=== PATIENT | male | born 1950 | race Caucasian/White ===

== ENCOUNTER → 2017-01-13 | Outpatient (CLI) | payer MEDICARE, OTHER | LOC: MW.CHFP 08:00 | PROVIDERS: ATTEND Student in an Organized Health Care Education/Training Program | DX: Z51.81 Encounter for therapeutic drug level monitoring (principal); Z79.01 Long term (current) use of anticoagulants; I48.91 Unspecified atrial fibrillation; I82.91 Chronic embolism and thrombosis of unspecified vein | CPT/HCPCS: 85610; 99211 ==

== ENCOUNTER → 2017-01-21 | Outpatient (CLI) | payer MEDICARE, OTHER ==
--- NOTE | 2017-01-21 16:17 | CR ---
EXAMINATION: Right knee HISTORY: Pain COMPARISON: 05/16/2015 TECHNIQUE: 4 views FINDINGS/IMPRESSION: There is mild joint space narrowing within the medial compartment. No fracture or acute osseous abnormality is noted. No joint effusion or soft tissue swelling.
== END ==
LOC: MW.CHORTHO 07:58
PROVIDERS: ATTEND Orthopaedic Surgery
DX: M25.561 Pain in right knee (principal); M25.861 Other specified joint disorders, right knee; M17.11 Unilateral primary osteoarthritis, right knee
CPT/HCPCS: 20610; 73564-26-RT; 73564-RT; 99214; J1040; J7326

== ENCOUNTER 2019-03-16 16:55 | Emergency (ER) | payer MEDICARE, OTHER ==
--- NOTE | 2019-03-16 17:26 | EDM.PDOC ---
ED HPI GENERAL MEDICAL PROBLEM - General Chief Complaint: Skin Complaint Stated Complaint: RIGHT LEG SORE Time Seen by Provider: 03/16/19 17:05 - History of Present Illness INITIAL COMMENTS - FREE TEXT/NARRATIVE: HISTORY AND PHYSICAL: History of present illness: The patient is a 68-year-old male with a history of A. fib chronic Coumadin use hypertension and hypercholesterolemia who follows with Dr. Hartman at [facility] and presents with complaints of swelling and redness to his left anterior lower leg that started after he cut it with a piece of metal about one week ago. Initially the patient injured it and had bleeding but it was not significantly bleeding and he kept the area clean and dry and they noticed significant swelling to the area. The swelling has improved and has become more hardened but the area of redness in the surrounding tissue as well as with dependent ecchymosis has been persistent. He has some discomfort and pain but he has no posterior calf pain and the pain is localized to the injury. He is able to use the leg as well as move the foot and there is no neurosensory changes in the distal foot. He has no bony pain and has no systemic complaints of fever chills nausea vomiting chest pain or shortness of breath. Patient's tetanus is up-to-date and he has a history of bilateral knee replacements. was concerned that there might be possible in this raised area even though the swelling has significantly improved. She is also worried about infection. The patient specifically denies any posterior calf pain or pain to the posterior knee and has no streaking of redness up his leg. He has no knee pain or swelling and no proximal thigh pain or swelling or swollen glands in his groin. Says his last INR was 2.8 and that was done about 3 weeks ago Review of systems: As per history of present illness and below otherwise all systems reviewed and negative. Past medical history: As per history of present illness and as reviewed below otherwise noncontributory. Surgical history: As per history of present illness and as reviewed below otherwise noncontributory. Social history: No reported history of drug or alcohol abuse. Family history: As per history of present illness and as reviewed below otherwise noncontributory. Physical exam: General: Well-developed well-nourished mildly overweight man who is nontoxic and vital signs are noted by me HEENT: Atraumatic, normocephalic, negative for conjunctival pallor or scleral icterus, mucous membranes moist, throat clear, neck supple, nontender, trachea midline. Lungs: Clear to auscultation, breath sounds equal bilaterally, chest nontender. Heart: S1S2, regular rate and rhythm no overt murmurs Abdomen: Soft, nondistended, nontender. Negative for masses or hepatosplenomegaly. NABS Pelvis: Stable nontender. Genitourinary: Deferred. Rectal: Deferred. Extremities: Atraumatic and full range of motion of all extremities with the exception of the anterior left tib-fib area, negative for cords or calf pain. At the left anterior tib-fib distally there is a scab-like area several centimeters in length without any weeping or oozing and there is a surrounding oval area of hardened induration with ill-defined erythema extending outwardly from that which is not circumferential. There is no streaking up the leg and the area is not particularly warm. There is some mild tenderness with palpation of the region but no bony tenderness. There is dependent ecchymosis seen along the sole of the foot but there is no foot tenderness or soft tissue swelling. The oval area of hardened induration is tender in this area but is very localized and well circumscribed. There is no inguinal adenopathy no warmth tenderness or swelling to the knee and the compartments are all soft. Neurovascular unremarkable. Neuro: Awake, alert, oriented. Cranial nerves II through XII unremarkable. Cerebellum unremarkable. Motor and sensory unremarkable throughout. Exam nonfocal. The patient can dorsi and plantar flex the left foot without inhibition. Diagnostics: CBC INR tib-fib x-ray Therapeutics: none I discussed with the patient and that the fact that the swelling is improving is a good sign and that what I am seeing likely is a retained hematoma that has had some mild infection but is improving and is now exhibiting more hardening and induration. This likely occurred due to his Coumadin usage and will proceed to do the above diagnostics. I will advise them on how to facilitate breakdown of the hematoma and the absorption of blood with gentle massage and I will cover him with antibiotics as this hematoma and area is showing signs of some early cellulitis Patient and at bedside are aware of the INR 1.8 as well as a platelet count of 76. He says that his platelets always run in the low range and that is not new to him. He tells me that he takes Coumadin 5 mg daily but on Friday and Friday it is increased to 7.5 once a day. I've advised him to take the 7.5 mg tonight as well as 7.5 mg tomorrow and and then get a repeat INR at [facility] on Friday. He is aware that the antibiotics may cause the INR to also be driven down and this needs to be reevaluated. He states understanding. Impression: Retained hematoma and early cellulitis of left lower extremity status post injury, chronic anticoagulation secondary to A. fib and subtherapeutic INR Definitive disposition and diagnosis as appropriate pending reevaluation and review of above. left lower leg Pain Score (Numeric/FACES): 5 - Related Data Allergies Allergy/AdvReac Type Severity Reaction Status Date / Time No Known Allergies Allergy Verified 03/16/19 17:06 Home Meds: Home Meds Warfarin [Coumadin] 5 mg PO SUMOWETHFR 12/19/15 [History] atorvaSTATin [Lipitor] 40 mg PO DAILY 12/19/15 [History] Diltiazem [Cardizem CD] 180 mg PO DAILY #14 cap.cd 12/21/15 [Rx] Lisinopril 40 mg PO DAILY #14 tablet 12/21/15 [Rx] Prochlorperazine Maleate [Compazine] 10 mg PO QID #20 tablet 12/21/15 [Rx] Warfarin [Coumadin] 7.5 mg PO TUSA 12/21/15 [History] cloNIDine HCl [Catapres] 0.1 mg PO Q8HR #42 tab 12/21/15 [Rx] Past Medical History HEENT History: Reports: Cataract, Impaired Vision Cardiovascular History: Reports: Arrhythmia, High Cholesterol, Hypertension, Pacemaker Respiratory History: Reports: None Gastrointestinal History: Reports: Diverticulosis, GERD Genitourinary History: Reports: None Musculoskeletal History: Reports: None Neurological History: Reports: None Psychiatric History: Reports: None Endocrine/Metabolic History: Reports: None Hematologic History: Reports: None Immunologic History: Reports: None Oncologic (Cancer) History: Reports: None Dermatologic History: Reports: None - Infectious Disease History Infectious Disease History: Reports: None - Past Surgical History Head Surgeries/Procedures: Reports: None HEENT Surgical History: Reports: None Cardiovascular Surgical History: Reports: Other (See Below) Respiratory Surgical History: Reports: None GI Surgical History: Reports: None Male Surgical History: Reports: None Endocrine Surgical History: Reports: None Neurological Surgical History: Reports: None Musculoskeletal Surgical History: Reports: Knee Replacement Oncologic Surgical History: Reports: None Dermatological Surgical History: Reports: None Social & Family History - Family History Family Medical History: Noncontributory - Tobacco Use Smoking Status *Q: Never Smoker - Caffeine Use Caffeine Use: Reports: None - Recreational Drug Use Recreational Drug Use: No ED ROS GENERAL - Review of Systems Review Of Systems: ROS reveals no pertinent complaints other than HPI. ED EXAM, SKIN/RASH Exam: See Below (See dictation) Course - Vital Signs Last Recorded V/S: Last Vital Signs Temp 35.9 C 03/16/19 17:08 Pulse 84 03/16/19 17:08 Resp 16 03/16/19 17:08 BP 144/97 H 03/16/19 17:08 Pulse Ox 97 03/16/19 17:08 - Orders/Labs/Meds Orders: Active Orders 24 hr Category Date Time Status Tibia Fibula Lt [CR] Stat Exams 03/16/19 17:19 Taken Labs: Laboratory Tests 03/16/19 03/16/19 Range/Units 17:32 17:32 WBC 8.24 (4.0-11.0) K/uL RBC 4.09 L (4.50-5.90) M/uL Hgb 12.4 L (13.0-17.0) g/dL Hct 37.9 L (38.0-50.0) % MCV 92.7 (80.0-98.0) fL MCH 30.3 (27.0-32.0) pg MCHC 32.7 (31.0-37.0) g/dL RDW Std Deviation 51.7 (28.0-62.0) fl RDW Coeff of Queenie 15 (11.0-15.0) % Plt Count 76 L (150-400) K/uL MPV 12.70 H (7.40-12.00) fL Add Manual Diff YES Neutrophils % (Manual) 48 (48.0-80.0) % Band Neutrophils % 1 % Lymphocytes % (Manual) 40 (16.0-40.0) % Monocytes % (Manual) 10 (0.0-15.0) % Eosinophils % (Manual) 1 (0.0-7.0) % Nucleated RBC % 0.0 /100WBC Absolute Seg Neuts 4.0 (1.4-5.7) Band Neutrophils # 0.1 Lymphocytes # (Manual) 3.3 H (0.6-2.4) Monocytes # (Manual) 0.8 (0.0-0.8) Eosinophils # (Manual) 0.1 (0.0-0.7) Nucleated RBCs # 0 K/uL INR 1.80 Departure - Departure Time of Disposition: 18:16 Disposition: Home, Self-Care 01 Condition: Good Clinical Impression: Left leg cellulitis, Chronic anticoagulation, Subtherapeutic international normalized ratio (INR) Hematoma of left lower extremity Qualifiers: Encounter type: initial encounter Qualified Code(s): S80.12XA - Contusion of left lower leg, initial encounter - Discharge Information Referrals: Newton Hartman MD [Primary Care Provider] - Forms: ED Department Discharge Additional Instructions: The following information is given to patients seen in the emergency department who are being discharged to home. This information is to outline your options for follow-up care. We provide all patients seen in our emergency department with a follow-up referral. The need for follow-up, as well as the timing and circumstances, are variable depending upon the specifics of your emergency department visit. If you don't have a primary care physician on staff, we will provide you with a referral. We always advise you to contact your personal physician following an emergency department visit to inform them of the circumstance of the visit and for follow-up with them and/or the need for any referrals to a consulting specialist. The emergency department will also refer you to a specialist when appropriate. This referral assures that you have the opportunity for followup care with a specialist. All of these measure are taken in an effort to provide you with optimal care, which includes your followup. Under all circumstances we always encourage you to contact your private physician who remains a resource for coordinating your care. When calling for followup care, please make the office aware that this follow-up is from your recent emergency room visit. If for any reason you are refused follow-up, please contact the [facility] emergency department at and ask to speak to the emergency department charge nurse. [facility] [address] [place] [address] Try to avoid any trauma to the leg that may reinjure it. Ice and elevate the area after prolonged standing activities. Please take your regular Coumadin dose tonight but increase your dose on Friday to 7.5 mg and take your regular dose on . Please call [facility] and have a repeat INR performed on Friday as we discussed. Please take antibiotics as prescribed for the early infection. Take [id number] medications for pain management and return to ER as needed and as discussed - My Orders Last 24 Hours: My Active Orders 03/16/19 17:19 Tibia Fibula Lt [CR] Stat - Assessment/Plan Last 24 Hours: My Active Orders 03/16/19 17:19 Tibia Fibula Lt [CR] Stat
[2019-03-16 18:34] VITALS: BP 136/91
--- NOTE | 2019-03-16 19:24 | CR ---
INDICATION: Anterior soft tissues sores. Rule out osteomyelitis. TECHNIQUE: 2-view left tibia and fibula. COMPARISON: none FINDINGS: The left knee arthroplasty and ankle are anatomically aligned. There is no evidence of a fracture or intrinsic bone lesion within the tibia and fibula. There is no evidence of gas or foreign body within the soft tissues. IMPRESSION: No evidence of osteomyelitis. Dictated by Geoffrey Camacho MD @ Mar 16 2019 6:57PM Signed by Dr. Geoffrey Camacho @ Mar 16 2019 7:22PM
== END 2019-03-16 18:32 | disposition home or self-care (01) ==
LOC: MW.ED 16:55
DX: S80.12XA Contusion of left lower leg, initial encounter (principal); L03.116 Cellulitis of left lower limb; R79.1 Abnormal coagulation profile; I10 Essential (primary) hypertension; I48.91 Unspecified atrial fibrillation; Z79.01 Long term (current) use of anticoagulants; Z95.0 Presence of cardiac pacemaker; Z79.899 Other long term (current) drug therapy; W26.8XXA Contact with other sharp object(s), not elsewhere classified, initial encounter
CPT/HCPCS: 36415; 73590-26-LT; 73590-LT; 85025; 85610; 99283-25

== ENCOUNTER 2019-06-07 10:58 | Observation (INO) | payer MEDICARE, OTHER ==
[2019-06-07] MEDS ORDERED: Diltiazem 25 MG/5 ML SDV IVPUSH ONE (11:04)
[2019-06-07] MEDS ORDERED: Sodium Chloride 0.9% 10 ML Syringe FLUSH PRN (11:05)
[2019-06-07] MEDS ORDERED: Sodium Chloride 0.9% 2.5 ML Syringe FLUSH PRN (11:05)
[2019-06-07] MEDS ORDERED: Diltiazem 25 MG/5 ML SDV ONE (11:05)
--- NOTE | 2019-06-07 11:05 | EDM.PDOC ---
ED HPI GENERAL MEDICAL PROBLEM - General Chief Complaint: Cardiovascular Problem Stated Complaint: AMB Time Seen by Provider: 06/07/19 11:04 Source of Information: Reports: Patient History Limitations: Reports: No Limitations - History of Present Illness INITIAL COMMENTS - FREE TEXT/NARRATIVE: HISTORY AND PHYSICAL: History of present illness: Patient is a 68-year-old male presents to the ED via EMS with complaint of dizziness and shortness of breath. Patient has history of chronic atrial fibrillation with pacemaker on warfarin, dyslipidemia. Patient states this morning he was at the [employer] playing pickle ball when he suddenly started feeling dizzy, lightheaded, short of breath and vomited. He states he has had this in the past and it resolves with rest. He states he is feeling much better now, denies any of the above symptoms, chest pain, abdominal pain, nausea, headache, palpitations. He states he has not take his diltiazem this morning. EKG shows atrial flutter with rate of 79, BP 133/75. Review of systems: As per history of present illness and below otherwise all systems reviewed and negative. Past medical history: As per history of present illness and as reviewed below otherwise noncontributory. Surgical history: As per history of present illness and as reviewed below otherwise noncontributory. Social history: No reported history of drug or alcohol abuse. Family history: As per history of present illness and as reviewed below otherwise noncontributory. Physical exam: General: Patient sitting comfortably in no acute distress and nontoxic appearing HEENT: Atraumatic, normocephalic, pupils reactive, negative for conjunctival pallor or scleral icterus, mucous membranes moist, throat clear, neck supple, nontender, trachea midline. No meningeal signs. Lungs: Clear to auscultation, breath sounds equal bilaterally, chest nontender. Heart: S1S2, regular, negative for clicks, rubs, or overt murmur. Abdomen: Soft, nondistended, nontender. Negative for masses or hepatosplenomegaly. Negative for costovertebral tenderness. No rigidity, rebound , guarding. Pelvis: Stable nontender. Genitourinary: Deferred. Rectal: Deferred. Extremities: Atraumatic, negative for cords or calf pain. Neurovascular unremarkable. Neuro: Awake, alert, oriented. Cranial nerves II through XII unremarkable. Cerebellum unremarkable. Motor and sensory unremarkable throughout. Exam nonfocal. Notes: Diagnostics: CBC, CMP, PT/INR, troponin, EKG, CXR Therapeutics: 1L NS IV Prescriptions: Impression: Atrial flutter Plan: Discussed with Dr. Zelaya, patient will be admitted to observation Definitive disposition and diagnosis as appropriate pending reevaluation and review of above. - Related Data Allergies Allergy/AdvReac Type Severity Reaction Status Date / Time No Known Allergies Allergy Verified 06/07/19 11:05 Home Meds: Home Meds Warfarin [Coumadin] 5 mg PO SUMOWETHFR 12/19/15 [History] atorvaSTATin [Lipitor] 40 mg PO DAILY 12/19/15 [History] Diltiazem [Cardizem CD] 180 mg PO DAILY #14 cap.cd 12/21/15 [Rx] Lisinopril 40 mg PO DAILY #14 tablet 12/21/15 [Rx] Prochlorperazine Maleate [Compazine] 10 mg PO QID #20 tablet 12/21/15 [Rx] Warfarin [Coumadin] 7.5 mg PO TUSA 12/21/15 [History] cloNIDine HCl [Catapres] 0.1 mg PO Q8HR #42 tab 12/21/15 [Rx] Amoxicillin/Clavulanate K [Augmentin 875-125 MG] 1 tab PO BID #20 tablet [Rx] Past Medical History HEENT History: Reports: Cataract, Impaired Vision Cardiovascular History: Reports: Arrhythmia, High Cholesterol, Hypertension, Pacemaker Respiratory History: Reports: None Gastrointestinal History: Reports: Diverticulosis, GERD Genitourinary History: Reports: None Musculoskeletal History: Reports: None Neurological History: Reports: None Psychiatric History: Reports: None Endocrine/Metabolic History: Reports: None Hematologic History: Reports: None Immunologic History: Reports: None Oncologic (Cancer) History: Reports: None Dermatologic History: Reports: None - Infectious Disease History Infectious Disease History: Reports: None - Past Surgical History Head Surgeries/Procedures: Reports: None HEENT Surgical History: Reports: None Cardiovascular Surgical History: Reports: Other (See Below) Respiratory Surgical History: Reports: None GI Surgical History: Reports: None Male Surgical History: Reports: None Endocrine Surgical History: Reports: None Neurological Surgical History: Reports: None Musculoskeletal Surgical History: Reports: Knee Replacement Oncologic Surgical History: Reports: None Dermatological Surgical History: Reports: None Social & Family History - Family History Family Medical History: Noncontributory - Caffeine Use Caffeine Use: Reports: None ED ROS GENERAL - Review of Systems Review Of Systems: ROS reveals no pertinent complaints other than HPI. ED EXAM, GENERAL - Physical Exam Exam: See Below (see dictation) Course - Vital Signs Last Recorded V/S: Last Vital Signs Temp 96.5 F 06/07/19 11:02 Pulse 82 06/07/19 11:54 Resp 20 06/07/19 11:54 BP 129/82 06/07/19 11:54 Pulse Ox 97 06/07/19 11:54 - Orders/Labs/Meds Orders: Active Orders 24 hr Category Date Time Status Admission Status [Patient Status] [ADT] Stat ADT 06/07/19 12:24 Ordered Cardiac Monitoring [RC] . DIRECTED Care 06/07/19 11:05 Active Cardiac Monitoring [RC] . DIRECTED Care 06/07/19 12:24 Ordered EKG Documentation Completion [RC] STAT Care 06/07/19 11:05 Active Sodium Chloride 0.9% [Saline Flush] Med 06/07/19 11:05 Active 10 ml FLUSH ASDIRECTED PRN Sodium Chloride 0.9% [Saline Flush] Med 06/07/19 11:05 Active 2.5 ml FLUSH ASDIRECTED PRN Saline Lock Insert [OM.PC] Stat Oth 06/07/19 11:05 Ordered Medication Orders Sodium Chloride (Saline Flush) 10 ml FLUSH ASDIRECTED PRN PRN Reason: Keep Vein Open Last Admin: 06/07/19 11:13 Dose: 10 ml Sodium Chloride (Saline Flush) 2.5 ml FLUSH ASDIRECTED PRN PRN Reason: Keep Vein Open Last Admin: 06/07/19 11:13 Dose: 2.5 ml Labs: Laboratory Tests 06/07/19 06/07/19 06/07/19 Range/Units 11:05 11:05 11:05 WBC 12.37 H (4.0-11.0) K/uL RBC 4.27 L (4.50-5.90) M/uL Hgb 13.3 (13.0-17.0) g/dL Hct 41.5 (38.0-50.0) % MCV 97.2 (80.0-98.0) fL MCH 31.1 (27.0-32.0) pg MCHC 32.0 (31.0-37.0) g/dL RDW Std Deviation 58.6 (28.0-62.0) fl RDW Coeff of Queenie 17 H (11.0-15.0) % Plt Count 71 L (150-400) K/uL MPV (7.40-12.00) fL Add Manual Diff YES Neutrophils % (Manual) 62 (48.0-80.0) % Band Neutrophils % 5 % Lymphocytes % (Manual) 9 L (16.0-40.0) % Monocytes % (Manual) 20 H (0.0-15.0) % Metamyelocytes % 1 % Myelocytes % 3 % Nucleated RBC % 0.0 /100WBC Absolute Seg Neuts 7.7 H (1.4-5.7) Band Neutrophils # 0.6 Lymphocytes # (Manual) 1.1 (0.6-2.4) Monocytes # (Manual) 2.5 H (0.0-0.8) Absolute Metamyelocyte 0.1 Absolute Myelocytes 0.4 Nucleated RBCs # 0 K/uL INR 2.37 Sodium 141 (136-148) mmol/L Potassium 3.8 (3.5-5.1) mmol/L Chloride 105 (98-107) mmol/L Carbon Dioxide 24.6 (21.0-32.0) mmol/L BUN 13 (7.0-18.0) mg/dL Creatinine 1.8 H (0.8-1.3) mg/dL Est Cr Clr Drug Dosing 35.70 mL/min Estimated GFR (MDRD) 37.5 ml/min Glucose 156 H (74-106) mg/dL Calcium 9.2 (8.5-10.1) mg/dL Total Bilirubin 1.4 H (0.2-1.0) mg/dL AST 36 (15-37) IU/L ALT 21 (14-63) IU/L Alkaline Phosphatase 65 (46-116) U/L Troponin I < 0.050 (0.000-0.056) ng/mL Total Protein 7.7 (6.4-8.2) g/dL Albumin 4.3 (3.4-5.0) g/dL Globulin 3.4 (2.6-4.0) g/dL Albumin/Globulin Ratio 1.3 (0.9-1.6) Meds: Medications Generic Name Dose Route Start Last Admin Trade Name Freq PRN Reason Stop Dose Admin Sodium Chloride 10 ml 06/07/19 11:05 06/07/19 11:13 Saline Flush FLUSH 10 ml ASDIRECTED PRN Administration Keep Vein Open Sodium Chloride 2.5 ml 06/07/19 11:05 06/07/19 11:13 Saline Flush FLUSH 2.5 ml ASDIRECTED PRN Administration Keep Vein Open Discontinued Medications Generic Name Dose Route Start Last Admin Trade Name Freq PRN Reason Stop Dose Admin Diltiazem HCl 25 mg 06/07/19 11:04 Diltiazem IVPUSH 06/07/19 11:05 ONETIME ONE Diltiazem HCl Confirm 06/07/19 11:05 Diltiazem Administered 06/07/19 11:06 Dose 25 mg .ROUTE .STK-MED ONE Sodium Chloride 1,000 mls @ 999 mls/hr 06/07/19 11:06 06/07/19 11:10 Normal Saline IV 06/07/19 12:06 999 mls/hr STAT ONE Administration Departure - Departure Time of Disposition: 12:26 Disposition: Refer to Observation Condition: Good Clinical Impression: Atrial flutter Referrals: PCP,Unknown [Primary Care Provider] - Forms: ED Department Discharge - My Orders Last 24 Hours: My Active Orders 06/07/19 11:05 Cardiac Monitoring [RC] . DIRECTED EKG Documentation Completion [RC] STAT Sodium Chloride 0.9% [Saline Flush] 10 ml FLUSH ASDIRECTED PRN Sodium Chloride 0.9% [Saline Flush] 2.5 ml FLUSH ASDIRECTED PRN Saline Lock Insert [OM.PC] Stat 06/07/19 12:24 Admission Status [Patient Status] [ADT] Stat Cardiac Monitoring [RC] . DIRECTED - Assessment/Plan Last 24 Hours: My Active Orders 06/07/19 11:05 Cardiac Monitoring [RC] . DIRECTED EKG Documentation Completion [RC] STAT Sodium Chloride 0.9% [Saline Flush] 10 ml FLUSH ASDIRECTED PRN Sodium Chloride 0.9% [Saline Flush] 2.5 ml FLUSH ASDIRECTED PRN Saline Lock Insert [OM.PC] Stat 06/07/19 12:24 Admission Status [Patient Status] [ADT] Stat Cardiac Monitoring [RC] . DIRECTED
[2019-06-07] MEDS ORDERED: Sodium Chloride 0.9% 1,000 ML IV ONE (11:06)
[2019-06-07 11:49] LABS: BLOOD UREA NITROGEN,BUN 13 mg/dL (7.0-18.0); CARBON DIOXIDE,CO2 24.6 mmol/L (21.0-32.0); CHLORIDE,CL 105 mmol/L (98-107); GLUCOSE RANDOM 156 mg/dL (74-106); POTASSIUM,K 3.8 mmol/L (3.5-5.1); SODIUM,NA 141 mmol/L (136-148)
--- NOTE | 2019-06-07 11:57 | CR ---
Chest: Portable view of the chest was obtained. Comparison: Prior chest x-ray 12/19/15. Findings: Heart size is slightly prominent but accentuated from portable technique. Tortuous thoracic aorta is seen. Pacemaker is noted. Bony structures are grossly intact. Impression: Nothing acute is seen on portable chest x-ray. Diagnostic code #2 MTDD
--- NOTE | 2019-06-07 14:27 | PCM.HP.2 ---
H&P History of Present Illness - General Date of Service: 06/07/19 Admit Problem/Dx: Admission Diagnosis/Problem Admission Diagnosis/Problem Atrial flutter by electrocardiogram Source of Information: Patient History Limitations: Reports: No Limitations - History of Present Illness Initial Comments - Free Text/Narative: This 68 year old male with pmh of a flutter on chronic anticoagulation, HTN, and recent cataract surgery presented to the ED today with complaint of lightheadedness, diaphoresis and vomiting. He reports he was playing pickle ball at the [employer] and didn't take enough breaks, per his report. He started feeling lightheaded and dizzy, short of breath and vomited. He felt better soon after once he was resting. He reports this has happened in the past and it resolves with rest. His was nearby and saw him during this event. She reports he was rangel in appearance, skin was diaphoretic and cool to the touch. She reports he hasn't been "right" the last day or two. He is alert and oriented , but just isn't himself. He denies fevers, chills, headache or neck pain. No chest pain or palpitations. reports when he was diagnosed with a flutter and pacer was placed, he had chronic fatigue and dizziness, no palpitations or chest pain. He denies dysuria or diarrhea or constipation. No neurologic deficits. He recently had a pacemaker check on April 24, reports everything was good. In the ED mild leukocytosis noted, 12,370, platelets 71, which is near baseline.. CR 1.8, elevated from baseline. Bilirubin 1.4 Troponin negative. EKG revealed aflutter, rates in the 70s. He was given 1 L fluid in the ED. He will be admitted for dizziness, lightheadedness. PCP, Dr Hartman. and Dr Alvarez in [place]. - Related Data Allergies/Adverse Reactions: Allergies Allergy/AdvReac Type Severity Reaction Status Date / Time No Known Allergies Allergy Verified 06/07/19 13:07 Home Medications: Home Meds Warfarin [Coumadin] 5 mg PO SUMOWEFR 12/19/15 [History] atorvaSTATin [Lipitor] 40 mg PO DAILY 12/19/15 [History] Diltiazem [Cardizem CD] 180 mg PO DAILY #14 cap.cd 12/21/15 [Rx] Warfarin [Coumadin] 7.5 mg PO TUTHSA 12/21/15 [History] Celecoxib [CeleBREX] 100 mg PO DAILY 06/07/19 [History] Lisinopril 20 mg PO DAILY 06/07/19 [History] Pantoprazole [ProTONIX] 40 mg PO DAILY 06/07/19 [History] Past Medical History HEENT History: Reports: Cataract, Impaired Vision Cardiovascular History: Reports: Afib, Arrhythmia, High Cholesterol, Hypertension, Pacemaker Respiratory History: Reports: None. Denies: COPD Gastrointestinal History: Reports: Diverticulosis, GERD, Other (See Below) Other Gastrointestinal History: "burned portions in esophagus" Genitourinary History: Reports: None Musculoskeletal History: Reports: None Neurological History: Reports: Other (See Below). Denies: CVA, TIA Other Neuro History: meningitis Psychiatric History: Reports: None Endocrine/Metabolic History: Reports: Obesity/BMI 30+. Denies: Diabetes, Type II Hematologic History: Reports: Idiopathic Thrombocytopenia Immunologic History: Reports: None Oncologic (Cancer) History: Reports: None Dermatologic History: Reports: None - Infectious Disease History Infectious Disease History: Reports: Measles - Past Surgical History Head Surgeries/Procedures: Reports: None HEENT Surgical History: Reports: None, Cataract Surgery Cardiovascular Surgical History: Reports: Pacer Respiratory Surgical History: Reports: None GI Surgical History: Reports: None Male Surgical History: Reports: None Endocrine Surgical History: Reports: None Neurological Surgical History: Reports: None Musculoskeletal Surgical History: Reports: Knee Replacement Oncologic Surgical History: Reports: None Dermatological Surgical History: Reports: None Social & Family History - Family History Family Medical History: Noncontributory - Tobacco Use Smoking Status *Q: Never Smoker - Caffeine Use Caffeine Use: Reports: Soda - Alcohol Use Alcohol Use History: No Alcohol Use Frequency: Socially - Recreational Drug Use Recreational Drug Use: No - Living Situation & Occupation Living situation: Reports: Occupation: Retired H&P Review of Systems - Review of Systems: Review Of Systems: See Below General: Reports: Malaise. Denies: Fever, Chills HEENT: Reports: No Symptoms. Denies: Headaches, Sinus Congestion, Sore Throat Pulmonary: Reports: Shortness of Breath (during event at [employer]). Denies: Wheezing Cardiovascular: Reports: Lightheadedness. Denies: Chest Pain, Palpitations, Edema Gastrointestinal: Reports: Vomiting. Denies: Abdominal Pain, Black Stool, Bloody Stool, Nausea Genitourinary: Reports: No Symptoms. Denies: Dysuria, Frequency, Burning Skin: Reports: No Symptoms Psychiatric: Reports: No Symptoms Neurological: Reports: No Symptoms Hematologic/Lymphatic: Reports: No Symptoms Immunologic: Reports: No Symptoms Exam - Exam Exam: See Below - Vital Signs Vital Signs: Last Vital Signs Temp 97 F 06/07/19 13:24 Pulse 78 06/07/19 13:24 Resp 18 06/07/19 13:24 BP 150/96 H 06/07/19 13:24 Pulse Ox 98 06/07/19 13:54 Weight: 116 kg - Exam General: Alert, Oriented, Cooperative HEENT: Conjunctiva Clear, Mucosa Moist & Wrigley, Posterior Pharynx Clear Neck: Supple, Trachea Midline Lungs: Clear to Auscultation, Normal Respiratory Effort Cardiovascular: Regular Rate, Irregular Rhythm. No: Tachycardia, Systolic Murmur GI/Abdominal Exam: Normal Bowel Sounds, Soft Extremities: Normal Inspection, Normal Range of Motion, Non-Tender, No Pedal Edema Neuro Extensive - Mental Status: Alert, Oriented x3 Neuro Extensive - Motor, Sensory, Reflexes: CN II-XII Intact Psychiatric: Alert, Normal Affect, Normal Mood - Patient Data Lab Results Last 24 hrs: Laboratory Results - last 24 hr 06/07/19 06/07/19 06/07/19 Range/Units 11:05 11:05 11:05 WBC 12.37 H (4.0-11.0) K/uL RBC 4.27 L (4.50-5.90) M/uL Hgb 13.3 (13.0-17.0) g/dL Hct 41.5 (38.0-50.0) % MCV 97.2 (80.0-98.0) fL MCH 31.1 (27.0-32.0) pg MCHC 32.0 (31.0-37.0) g/dL RDW Std Deviation 58.6 (28.0-62.0) fl RDW Coeff of Queenie 17 H (11.0-15.0) % Plt Count 71 L (150-400) K/uL MPV (7.40-12.00) fL Add Manual Diff YES Neutrophils % (Manual) 62 (48.0-80.0) % Band Neutrophils % 5 % Lymphocytes % (Manual) 9 L (16.0-40.0) % Monocytes % (Manual) 20 H (0.0-15.0) % Metamyelocytes % 1 % Myelocytes % 3 % Nucleated RBC % 0.0 /100WBC Absolute Seg Neuts 7.7 H (1.4-5.7) Band Neutrophils # 0.6 Lymphocytes # (Manual) 1.1 (0.6-2.4) Monocytes # (Manual) 2.5 H (0.0-0.8) Absolute Metamyelocyte 0.1 Absolute Myelocytes 0.4 Nucleated RBCs # 0 K/uL INR 2.37 Sodium 141 (136-148) mmol/L Potassium 3.8 (3.5-5.1) mmol/L Chloride 105 (98-107) mmol/L Carbon Dioxide 24.6 (21.0-32.0) mmol/L BUN 13 (7.0-18.0) mg/dL Creatinine 1.8 H (0.8-1.3) mg/dL Est Cr Clr Drug Dosing 35.70 mL/min Estimated GFR (MDRD) 37.5 ml/min Glucose 156 H (74-106) mg/dL Calcium 9.2 (8.5-10.1) mg/dL Magnesium (1.8-2.4) mg/dL Total Bilirubin 1.4 H (0.2-1.0) mg/dL AST 36 (15-37) IU/L ALT 21 (14-63) IU/L Alkaline Phosphatase 65 (46-116) U/L Troponin I < 0.050 (0.000-0.056) ng/mL Total Protein 7.7 (6.4-8.2) g/dL Albumin 4.3 (3.4-5.0) g/dL Globulin 3.4 (2.6-4.0) g/dL Albumin/Globulin Ratio 1.3 (0.9-1.6) 06/07/19 Range/Units 11:05 WBC (4.0-11.0) K/uL RBC (4.50-5.90) M/uL Hgb (13.0-17.0) g/dL Hct (38.0-50.0) % MCV (80.0-98.0) fL MCH (27.0-32.0) pg MCHC (31.0-37.0) g/dL RDW Std Deviation (28.0-62.0) fl RDW Coeff of Queenie (11.0-15.0) % Plt Count (150-400) K/uL MPV (7.40-12.00) fL Add Manual Diff Neutrophils % (Manual) (48.0-80.0) % Band Neutrophils % % Lymphocytes % (Manual) (16.0-40.0) % Monocytes % (Manual) (0.0-15.0) % Metamyelocytes % % Myelocytes % % Nucleated RBC % /100WBC Absolute Seg Neuts (1.4-5.7) Band Neutrophils # Lymphocytes # (Manual) (0.6-2.4) Monocytes # (Manual) (0.0-0.8) Absolute Metamyelocyte Absolute Myelocytes Nucleated RBCs # K/uL INR Sodium (136-148) mmol/L Potassium (3.5-5.1) mmol/L Chloride (98-107) mmol/L Carbon Dioxide (21.0-32.0) mmol/L BUN (7.0-18.0) mg/dL Creatinine (0.8-1.3) mg/dL Est Cr Clr Drug Dosing mL/min Estimated GFR (MDRD) ml/min Glucose (74-106) mg/dL Calcium (8.5-10.1) mg/dL Magnesium 1.9 (1.8-2.4) mg/dL Total Bilirubin (0.2-1.0) mg/dL AST (15-37) IU/L ALT (14-63) IU/L Alkaline Phosphatase (46-116) U/L Troponin I (0.000-0.056) ng/mL Total Protein (6.4-8.2) g/dL Albumin (3.4-5.0) g/dL Globulin (2.6-4.0) g/dL Albumin/Globulin Ratio (0.9-1.6) Result Diagrams: 06/07/19 11:05 06/07/19 11:05 EKG INTERPRETATION EKG Date: 06/07/19 Rhythm: A-Flutter Rate (Beats/Min): 79 QRS: Normal ST-T: Normal QT: Normal - Problem List (1) Lightheadedness SNOMED Code(s): 419723063 ICD Code: R42 - DIZZINESS AND GIDDINESS Status: Acute Current Visit: Yes (2) Atrial flutter SNOMED Code(s): 9911591 ICD Code: I48.92 - UNSPECIFIED ATRIAL FLUTTER Status: Chronic Current Visit: Yes (3) Chronic anticoagulation SNOMED Code(s): 093752545 ICD Code: Z79.01 - SENIOR LIVING (CURRENT) USE OF ANTICOAGULANTS Status: Chronic Current Visit: No (4) Dyslipidemia SNOMED Code(s): 385063590 ICD Code: E78.5 - HYPERLIPIDEMIA, UNSPECIFIED Status: Chronic Priority: Medium Current Visit: No (5) Pacemaker SNOMED Code(s): 695887967 ICD Code: Z95.0 - PRESENCE OF CARDIAC PACEMAKER Status: Chronic Current Visit: No Problem List Initiated/Reviewed/Updated: Yes Orders Last 24hrs: Active Orders 24 hr Category Date Time Status Admission Status [Patient Status] [ADT] Stat ADT 06/07/19 12:24 Active Cardiac Monitoring [RC] . DIRECTED Care 06/07/19 11:05 Active Cardiac Monitoring [RC] . DIRECTED Care 06/07/19 12:24 Active Communication Order [RC] ROUTINE Care 06/07/19 13:58 Active EKG Documentation Completion [RC] STAT Care 06/07/19 11:05 Active Intake and Output [RC] Q12H Care 06/07/19 13:55 Active Oxygen Therapy [RC] PRN Care 06/07/19 13:54 Active Telemetry Monitoring [Cardiac Monitoring] [RC] . Care 06/07/19 12:52 Active DIRECTED Up to Chair [RC] ASDIRECTED Care 06/07/19 13:54 Active VTE/DVT Education [RC] PER UNIT ROUTINE Care 06/07/19 13:54 Active Vital Signs [RC] Q4H Care 06/07/19 13:54 Active Heart Healthy Diet [DIET] Diet 06/07/19 Lunch Active Echo Comp wo Cont [US] Routine Exams 06/07/19 13:56 Ordered BASIC METABOLIC PANEL,BMP [CHEM] AM Lab 06/08/19 05:11 Ordered CBC WITH AUTO DIFF [HEME] AM Lab 06/08/19 05:11 Ordered TROPONIN I [CHEM] Q6H Lab 06/07/19 17:00 Ordered TROPONIN I [CHEM] Q6H Lab 06/07/19 23:00 Ordered Sodium Chloride 0.9% [Normal Saline] 1,000 ml Med 06/07/19 14:00 Active IV ASDIRECTED Sodium Chloride 0.9% [Saline Flush] Med 06/07/19 11:05 Active 10 ml FLUSH ASDIRECTED PRN Sodium Chloride 0.9% [Saline Flush] Med 06/07/19 11:05 Active 2.5 ml FLUSH ASDIRECTED PRN Saline Lock Insert [OM.PC] Stat Oth 06/07/19 11:05 Ordered Resuscitation Status Routine Resus Stat 06/07/19 13:54 Ordered Medication Orders Sodium Chloride (Normal Saline) 1,000 mls @ 100 mls/hr IV ASDIRECTED OPAL Sodium Chloride (Saline Flush) 10 ml FLUSH ASDIRECTED PRN PRN Reason: Keep Vein Open Last Admin: 06/07/19 11:13 Dose: 10 ml Sodium Chloride (Saline Flush) 2.5 ml FLUSH ASDIRECTED PRN PRN Reason: Keep Vein Open Last Admin: 06/07/19 11:13 Dose: 2.5 ml Assessment/Plan Comment:: This 68 year old male admitted with dizziness, lightheadedness 1. Dizziness/lightheadedness: During exercise this morning. Dr Bonner to interrogate pacemaker, this revealed afib with RVR yesterday, nothing today. He had not taken his Diltiazem for the morning. Dr Bonner recommended ECHO, monitor troponins, and carotid doppler. Monitor on telemetry. Check orthostatic VS. 2. JACEK: Slight dehydration suspected. Will give gentle IVF overnight NS 100 ml, recheck BMP in am. Obtain records of last labwork in [place]. 3. Aflutter: Continue Diltiazem. Continue Coumadin. 4. HTN: Continue Home medications. VTE prophylaxis: Continue Coumadin Dispo: 1 day - Mortality Measure Prognosis:: Good
[2019-06-07] MEDS: Sodium Chloride 0.9% 1,000 ML IV SCH (16:25)
--- NOTE | 2019-06-07 17:02 | US ---
Carotid ultrasound: Duplex and color Doppler evaluation was obtained of the carotid arteries. Mild amount of plaque noted within the right carotid bulb. Right side: Peak systolic velocity measurement within the common carotid artery is 0.90 m/s. Peak systolic velocity within the internal carotid artery is 0.96 m/s with peak end-diastolic velocity of 0.39 m/s. ECA has a peak systolic velocity of 1.11 m/s. Vertebral artery has a peak systolic velocity of 0.14 m/s. ICA/CCA ratio is 1.39. Left side: CCA has a peak systolic velocity of 1.04 m/s. ICA has a peak systolic velocity of 0.71 m/s and peak end-diastolic velocity of 0.28 m/s. ECA has a peak systolic velocity of 0.66 m/s. Vertebral artery has a peak systolic velocity of 0.78 m/s. ICA/CCA ratio is 1.06. Impression: 1. Mild amount of plaque. 2. Velocity measurements are within normal limits. Diagnostic code #2 MTDD
[2019-06-07] MEDS ORDERED: Warfarin 5 MG Tab PO SCH (20:00)
[2019-06-07] MEDS: Diltiazem 180 MG Cap.CD PO SCH (21:21)
[2019-06-08] MEDS: Sodium Chloride 0.9% 1,000 ML IV SCH (02:12)
[2019-06-08 04:24] VITALS: PULSE 74
[2019-06-08 07:08] LABS: CARBON DIOXIDE,CO2 24.9 mmol/L (21.0-32.0); POTASSIUM,K 3.7 mmol/L (3.5-5.1)
[2019-06-08 08:05] VITALS: BP 164/93
[2019-06-08] MEDS: Diltiazem 180 MG Cap.CD PO SCH (08:20)
[2019-06-08] MEDS ORDERED: Pantoprazole 40 MG Tab.CR PO SCH (09:00)
[2019-06-08] MEDS ORDERED: Lisinopril 10 MG Tab PO SCH (09:00)
[2019-06-08] MEDS ORDERED: atorvaSTATin 40 MG Tab PO SCH (09:00)
--- NOTE | 2019-06-08 09:48 | PCM.PRNOTE ---
- Free Text/Narrative Note: Device interrogation last interrogation DOS 06/07/2019 Company [employer] Model [address] DR MRI [id number] Mode AAI = DDDR LRL 60 bpm % paced intrinsic rhythm Battery life 3 years Atrial lead sensin.8 capture threshold: 0.625 V @ 0.4 ms impedance: 437 Ventricular lead sensin.4 mV capture threshold: 0.5V@0.4 impedance: 513 episode: persistent afib since 04/2018 MS:avg HR 80 high V rate 06/06/2019 160 Imp normally functioning PPM plan f/u with device clinic
--- NOTE | 2019-06-08 10:09 | PCM.SN ---
- Free Text/Narrative Note: dictation [id number]
--- NOTE | 2019-06-08 10:14 | PCM.DCSUM1 ---
Discharge Summary - Hospital Course Brief History: This 68 year old male with pmh of a flutter on chronic anticoagulation, HTN, and recent cataract surgery presented to the ED today with complaint of lightheadedness, diaphoresis and vomiting. He reports he was playing pickle ball at the [employer] and didn't take enough breaks, per his report. He started feeling lightheaded and dizzy, short of breath and vomited. He felt better soon after once he was resting. He reports this has happened in the past and it resolves with rest. His was nearby and saw him during this event. She reports he was rangel in appearance, skin was diaphoretic and cool to the touch. She reports he hasn't been "right" the last day or two. He is alert and oriented, but just isn't himself. He denies fevers, chills, headache or neck pain. No chest pain or palpitations. reports when he was diagnosed with a flutter and pacer was placed, he had chronic fatigue and dizziness, no palpitations or chest pain. He denies dysuria or diarrhea or constipation. No neurologic deficits. He recently had a pacemaker check on April 24, reports everything was good. In the ED mild leukocytosis noted, 12,370, platelets 71, which is near baseline.. CR 1.8, elevated from baseline. Bilirubin 1.4 Troponin negative. EKG revealed aflutter, rates in the 70s. He was given 1 L fluid in the ED. He will be admitted for dizziness, lightheadedness. PCP, Dr Hartman. and Dr Alvarez in [place]. Diagnosis: Stroke: No - Discharge Data Discharge Date: 06/08/19 Discharge Disposition: Home, Self-Care 01 Condition: Good - Referral to Home Health Primary Care Physician: PCP Unknown - Discharge Diagnosis/Problem(s) (1) Lightheadedness SNOMED Code(s): 292311812 ICD Code: R42 - DIZZINESS AND GIDDINESS Status: Acute (2) Atrial flutter SNOMED Code(s): 7317303 ICD Code: I48.92 - UNSPECIFIED ATRIAL FLUTTER Status: Chronic (3) Chronic anticoagulation SNOMED Code(s): 714916870 ICD Code: Z79.01 - PRISON (CURRENT) USE OF ANTICOAGULANTS Status: Chronic (4) Dyslipidemia SNOMED Code(s): 773197231 ICD Code: E78.5 - HYPERLIPIDEMIA, UNSPECIFIED Status: Chronic Priority: Medium (5) Pacemaker SNOMED Code(s): 647353332 ICD Code: Z95.0 - PRESENCE OF CARDIAC PACEMAKER Status: Chronic - Patient Summary/Data Consults: Consultations 06/07/19 14:27 Consult to Physician [CONS] Routine - Patient Instructions Diet: Heart Healthy Diet Activity: As Tolerated Notify Provider of: Fever, Increased Pain, Swelling and Redness, Drainage, Nausea and/or Vomiting Other/Special Instructions: Monitor for bleeding, if bleeding occurs, please seek medical evaluation immediately. - Discharge Plan *PRESCRIPTION DRUG MONITORING PROGRAM REVIEWED*: Not Applicable *COPY OF PRESCRIPTION DRUG MONITORING REPORT IN PATIENT MODE: Not Applicable Home Medications: Home Meds Warfarin [Coumadin] 5 mg PO SUMOWEFR 12/19/15 [History] atorvaSTATin [Lipitor] 40 mg PO DAILY 12/19/15 [History] Diltiazem [Cardizem CD] 180 mg PO DAILY #14 cap.cd 12/21/15 [Rx] Warfarin [Coumadin] 7.5 mg PO TUTHSA 12/21/15 [History] Celecoxib [CeleBREX] 100 mg PO DAILY 06/07/19 [History] Lisinopril 20 mg PO DAILY 06/07/19 [History] Pantoprazole [ProTONIX] 40 mg PO DAILY 06/07/19 [History] Oxygen Therapy Mode: Room Air Patient Handouts: Atrial Flutter, Dizziness, [id number] Referrals: [facility] [Outside] Wilber Bonner MD [Physician] - 07/13/19 2:30 pm (2-3 weeks follow up) Syd Burno MD [Ordering Only Provider] - 06/15/19 10:30 am (1 week with lab work) - Discharge Summary/Plan Comment DC Time >30 min.: No Discharge Summary/Plan Comment: Admitting Diagnoses: Aflutter- Dizziness, lightheadedness Dehydration Discharge Diagnoses Aflutter, rate controlled Thrombocytopenia Other PMH: HTN Obesity Chronic Anticoagulation Ray was admitted secondary to an event at the [employer] while playing Pickle ball. SInce admission, he has been stable. Dr Bonner, Cardiology interrogated pacemaker, Afib RR noted the day prior, when he had similar event. He was monitored on telemetry here, no rapid ventricular rate noted. Remained in Aflutter with intermittent pacer spikes. He was feeling better this morning. Creatinine was elevated 1.8, give gentle IVF overnight and improved to 1.3 today. Platelets dipped to 55,000, which he states he is being followed by Heme/ Onc in [place]. He is noted worried and would like to follow with PCP next week for redraw and then will be heading to [place] in July until December. We will establish care with Dr Bonner here in [place], so when he is in town he can follow with. He is to continue taking all prescribed medications. He wsa educated on monitoring for signs of bleeding and if they occur he needs to seek immediate medical evaluation. He verbalized understanding. He is to return to ED or clinic if concerns should arise. - General Info Date of Service: 06/08/19 Admission Dx/Problem (Free Text: Admission Diagnosis/Problem Admission Diagnosis/Problem Atrial flutter by electrocardiogram Subjective Update: Doing well this morning, no events. Didn't sleep well. Asking for discharge home. No chest pain or palpitation. Functional Status: Reports: Pain Controlled, Tolerating Diet, Ambulating, Urinating - Review of Systems General: Reports: No Symptoms. Denies: Weakness, Fatigue HEENT: Reports: No Symptoms. Denies: Headaches, Sore Throat, Visual Changes Pulmonary: Reports: No Symptoms. Denies: Shortness of Breath Cardiovascular: Reports: No Symptoms. Denies: Chest Pain Gastrointestinal: Reports: No Symptoms. Denies: Abdominal Pain, Nausea, Vomiting Genitourinary: Reports: No Symptoms Musculoskeletal: Reports: No Symptoms Skin: Reports: No Symptoms Neurological: Reports: No Symptoms Psychiatric: Reports: No Symptoms - Patient Data Vitals - Most Recent: Last Vital Signs Temp 98.1 F 06/08/19 08:04 Pulse 74 06/08/19 08:04 Resp 16 06/08/19 08:04 BP 164/93 H 06/08/19 08:20 Pulse Ox 95 06/08/19 08:04 Orthostatic Blood Pressure [ 152/84 Standing] Orthostatic Blood Pressure [ 144/92 Sitting] Orthostatic Blood Pressure [ 135/60 Supine] Weight - Most Recent: 116 kg I&O - Last 24 hours: Intake & Output 06/07/19 06/08/19 06/08/19 22:59 06:59 14:59 Intake Total 200 1949 Output Total 500 1050 Balance -300 899 Lab Results - Last 24 hrs: Laboratory Results - last 24 hr 06/07/19 06/07/19 06/07/19 Range/Units 11:05 11:05 11:05 WBC 12.37 H (4.0-11.0) K/uL RBC 4.27 L (4.50-5.90) M/uL Hgb 13.3 (13.0-17.0) g/dL Hct 41.5 (38.0-50.0) % MCV 97.2 (80.0-98.0) fL MCH 31.1 (27.0-32.0) pg MCHC 32.0 (31.0-37.0) g/dL RDW Std Deviation 58.6 (28.0-62.0) fl RDW Coeff of Queenie 17 H (11.0-15.0) % Plt Count 71 L (150-400) K/uL MPV (7.40-12.00) fL Add Manual Diff YES Neutrophils % (Manual) 62 (48.0-80.0) % Band Neutrophils % 5 % Lymphocytes % (Manual) 9 L (16.0-40.0) % Monocytes % (Manual) 20 H (0.0-15.0) % Metamyelocytes % 1 % Myelocytes % 3 % Nucleated RBC % 0.0 /100WBC Absolute Seg Neuts 7.7 H (1.4-5.7) Band Neutrophils # 0.6 Lymphocytes # (Manual) 1.1 (0.6-2.4) Monocytes # (Manual) 2.5 H (0.0-0.8) Absolute Metamyelocyte 0.1 Absolute Myelocytes 0.4 Nucleated RBCs # 0 K/uL INR 2.37 Sodium 141 (136-148) mmol/L Potassium 3.8 (3.5-5.1) mmol/L Chloride 105 (98-107) mmol/L Carbon Dioxide 24.6 (21.0-32.0) mmol/L BUN 13 (7.0-18.0) mg/dL Creatinine 1.8 H (0.8-1.3) mg/dL Est Cr Clr Drug Dosing 35.70 mL/min Estimated GFR (MDRD) 37.5 ml/min Glucose 156 H (74-106) mg/dL Calcium 9.2 (8.5-10.1) mg/dL Magnesium (1.8-2.4) mg/dL Total Bilirubin 1.4 H (0.2-1.0) mg/dL AST 36 (15-37) IU/L ALT 21 (14-63) IU/L Alkaline Phosphatase 65 (46-116) U/L Troponin I < 0.050 (0.000-0.056) ng/mL Total Protein 7.7 (6.4-8.2) g/dL Albumin 4.3 (3.4-5.0) g/dL Globulin 3.4 (2.6-4.0) g/dL Albumin/Globulin Ratio 1.3 (0.9-1.6) Urine Color Urine Appearance Urine pH (5.0-8.0) Ur Specific [place] (1.001-1.035) Urine Protein (NEGATIVE) mg/dL Urine Glucose (UA) (NEGATIVE) mg/dL Urine Ketones (NEGATIVE) mg/dL Urine Occult Blood (NEGATIVE) Urine Nitrite (NEGATIVE) Urine Bilirubin (NEGATIVE) Urine Urobilinogen (<2.0) EU/dL Ur Leukocyte Esterase (NEGATIVE) 06/07/19 06/07/19 06/07/19 Range/Units 11:05 15:24 17:08 WBC (4.0-11.0) K/uL RBC (4.50-5.90) M/uL Hgb (13.0-17.0) g/dL Hct (38.0-50.0) % MCV (80.0-98.0) fL MCH (27.0-32.0) pg MCHC (31.0-37.0) g/dL RDW Std Deviation (28.0-62.0) fl RDW Coeff of Queenie (11.0-15.0) % Plt Count (150-400) K/uL MPV (7.40-12.00) fL Add Manual Diff Neutrophils % (Manual) (48.0-80.0) % Band Neutrophils % % Lymphocytes % (Manual) (16.0-40.0) % Monocytes % (Manual) (0.0-15.0) % Metamyelocytes % % Myelocytes % % Nucleated RBC % /100WBC Absolute Seg Neuts (1.4-5.7) Band Neutrophils # Lymphocytes # (Manual) (0.6-2.4) Monocytes # (Manual) (0.0-0.8) Absolute Metamyelocyte Absolute Myelocytes Nucleated RBCs # K/uL INR Sodium (136-148) mmol/L Potassium (3.5-5.1) mmol/L Chloride (98-107) mmol/L Carbon Dioxide (21.0-32.0) mmol/L BUN (7.0-18.0) mg/dL Creatinine (0.8-1.3) mg/dL Est Cr Clr Drug Dosing mL/min Estimated GFR (MDRD) ml/min Glucose (74-106) mg/dL Calcium (8.5-10.1) mg/dL Magnesium 1.9 (1.8-2.4) mg/dL Total Bilirubin (0.2-1.0) mg/dL AST (15-37) IU/L ALT (14-63) IU/L Alkaline Phosphatase (46-116) U/L Troponin I < 0.050 (0.000-0.056) ng/mL Total Protein (6.4-8.2) g/dL Albumin (3.4-5.0) g/dL Globulin (2.6-4.0) g/dL Albumin/Globulin Ratio (0.9-1.6) Urine Color YELLOW Urine Appearance CLEAR Urine pH 7.0 (5.0-8.0) Ur Specific [place] 1.015 (1.001-1.035) Urine Protein NEGATIVE (NEGATIVE) mg/dL Urine Glucose (UA) NEGATIVE (NEGATIVE) mg/dL Urine Ketones NEGATIVE (NEGATIVE) mg/dL Urine Occult Blood NEGATIVE (NEGATIVE) Urine Nitrite NEGATIVE (NEGATIVE) Urine Bilirubin NEGATIVE (NEGATIVE) Urine Urobilinogen 0.2 (<2.0) EU/dL Ur Leukocyte Esterase NEGATIVE (NEGATIVE) 06/07/19 06/08/19 06/08/19 Range/Units 22:46 05:58 05:58 WBC 11.89 H (4.0-11.0) K/uL RBC 3.70 L (4.50-5.90) M/uL Hgb 11.5 L (13.0-17.0) g/dL Hct 35.8 L (38.0-50.0) % MCV 96.8 (80.0-98.0) fL MCH 31.1 (27.0-32.0) pg MCHC 32.1 (31.0-37.0) g/dL RDW Std Deviation 58.1 (28.0-62.0) fl RDW Coeff of Queenie 17 H (11.0-15.0) % Plt Count 55 L (150-400) K/uL MPV 13.00 H (7.40-12.00) fL Add Manual Diff YES Neutrophils % (Manual) 71 (48.0-80.0) % Band Neutrophils % 3 % Lymphocytes % (Manual) 9 L (16.0-40.0) % Monocytes % (Manual) 17 H (0.0-15.0) % Metamyelocytes % % Myelocytes % % Nucleated RBC % 0.0 /100WBC Absolute Seg Neuts 8.4 H (1.4-5.7) Band Neutrophils # 0.4 Lymphocytes # (Manual) 1.1 (0.6-2.4) Monocytes # (Manual) 2.0 H (0.0-0.8) Absolute Metamyelocyte Absolute Myelocytes Nucleated RBCs # 0 K/uL INR Sodium 143 (136-148) mmol/L Potassium 3.7 (3.5-5.1) mmol/L Chloride 106 (98-107) mmol/L Carbon Dioxide 24.9 (21.0-32.0) mmol/L BUN 13 (7.0-18.0) mg/dL Creatinine 1.3 (0.8-1.3) mg/dL Est Cr Clr Drug Dosing 49.43 mL/min Estimated GFR (MDRD) 54.6 ml/min Glucose 97 (74-106) mg/dL Calcium 8.2 L (8.5-10.1) mg/dL Magnesium (1.8-2.4) mg/dL Total Bilirubin (0.2-1.0) mg/dL AST (15-37) IU/L ALT (14-63) IU/L Alkaline Phosphatase (46-116) U/L Troponin I < 0.050 (0.000-0.056) ng/mL Total Protein (6.4-8.2) g/dL Albumin (3.4-5.0) g/dL Globulin (2.6-4.0) g/dL Albumin/Globulin Ratio (0.9-1.6) Urine Color Urine Appearance Urine pH (5.0-8.0) Ur Specific [place] (1.001-1.035) Urine Protein (NEGATIVE) mg/dL Urine Glucose (UA) (NEGATIVE) mg/dL Urine Ketones (NEGATIVE) mg/dL Urine Occult Blood (NEGATIVE) Urine Nitrite (NEGATIVE) Urine Bilirubin (NEGATIVE) Urine Urobilinogen (<2.0) EU/dL Ur Leukocyte Esterase (NEGATIVE) Med Orders - Current: Current Medications Atorvastatin Calcium (Lipitor) 40 mg PO DAILY [facility] Last Admin: 06/08/19 08:20 Dose: 40 mg Diltiazem HCl (Cardizem Cd) 180 mg PO DAILY [facility] Last Admin: 06/08/19 08:20 Dose: 180 mg Sodium Chloride (Normal Saline) 1,000 mls @ 100 mls/hr IV ASDIRECTED [facility] Last Admin: 06/08/19 02:12 Dose: 100 mls/hr Lisinopril (Prinivil) 20 mg PO DAILY [facility] Last Admin: 06/08/19 08:20 Dose: 20 mg Pantoprazole Sodium (Protonix) 40 mg PO DAILY [facility] Last Admin: 06/08/19 08:20 Dose: 40 mg Sodium Chloride (Saline Flush) 10 ml FLUSH ASDIRECTED PRN PRN Reason: Keep Vein Open Last Admin: 06/07/19 11:13 Dose: 10 ml Sodium Chloride (Saline Flush) 2.5 ml FLUSH ASDIRECTED PRN PRN Reason: Keep Vein Open Last Admin: 06/07/19 11:13 Dose: 2.5 ml Warfarin Sodium (Coumadin) 5 mg PO SuMoWeFr@1400 [facility] Last Admin: 06/07/19 21:22 Dose: 5 mg Warfarin Sodium (Coumadin) 7.5 mg PO TuThSa@1400 [facility] Discontinued Medications Diltiazem HCl (Diltiazem) 25 mg IVPUSH ONETIME ONE Stop: 06/07/19 11:05 Last Admin: 06/07/19 15:02 Dose: Not Given Diltiazem HCl (Diltiazem) Confirm Administered Dose 25 mg .ROUTE .STK-MED ONE Stop: 06/07/19 11:06 Last Admin: 06/07/19 15:02 Dose: Not Given Sodium Chloride (Normal Saline) 1,000 mls @ 999 mls/hr IV STAT ONE Stop: 06/07/19 12:06 Last Admin: 06/07/19 11:10 Dose: 999 mls/hr - Exam General: Reports: Alert, Oriented, Cooperative Neck: Reports: Supple Lungs: Reports: Clear to Auscultation, Normal Respiratory Effort Cardiovascular: Reports: Regular Rate, Regular Rhythm GI/Abdominal Exam: Normal Bowel Sounds, Soft Extremities: Normal Inspection, Normal Range of Motion, Non-Tender Neurological: Reports: No New Focal Deficit Psy/Mental Status: Reports: Alert, Normal Affect, Normal Mood
--- NOTE | 2019-06-08 10:58 | CONS ---
DATE OF CONSULTATION: DATE OF : 1950 PRIMARY CARE PHYSICIAN: Unknown PCP REASON FOR CONSULTATION: Dizziness and pacemaker check. HISTORY OF PRESENT ILLNESS: This is a 68-year-old pleasant gentleman who has a history of persistent atrial fibrillation, hyperlipidemia, chronic thrombocytopenia, and has a pacemaker done in 2013. He came into the hospital because of dizziness as well as pale looking, and he has been in his usual state of health until the day of admission when he was playing pickleball. He started feeling dizzy and may be slightly short of breath, but no chest pain, no palpitation. He was told by his that he looks very, very pale, and then they decided to drive him to the hospital. When he got here, he received 1 L of normal saline and vital signs when he got here were 133/75 with a heart rate of 79 and the EKG showing atrial fibrillation most likely. He stated that he did not take the medication this morning. ALLERGIES: No known drug allergies. FAMILY HISTORY: No family history of heart disease. SOCIAL HISTORY: Nonsmoker. Occasionally drinks alcohol. No drug use. CURRENT MEDICATIONS: 1. Lipitor 40 mg once a day. 2. Coumadin. 3. Diltiazem 240 mg once a day. REVIEW OF SYSTEMS: Review of system has been indicated in the HPI, otherwise, has been negative. PHYSICAL EXAMINATION: VITAL SIGNS: Initial blood pressure is 135/60, heart rate is 79, temperature 97.8, respirations 18, O2 saturation 97 on room air. HEENT: Not pale. No jaundice. No JVD. HEART: Normal S1, S2. No murmur. Totally regular. LUNGS: Clear. No wheezing. No crackles. ABDOMEN: Soft, nontender. Bowel sounds are present. No hepatosplenomegaly. EXTREMITIES: Legs, no edema. INVESTIGATIONS: EKG shows atrial fibrillation, heart rate of 70. CBC showed WBC 11, hematocrit of 35, hemoglobin of 11, platelet is 55. INR is 2.37. Sodium 143, potassium 3.7, chloride 105, bicarb 24, BUN 13, creatinine 1.8, glucose 156, total bilirubin is 1.4. Troponin was negative. The previous echocardiogram from outside hospital, dated 10/08/2018, ejection fraction of 57%, ascending aorta is 3.8, pacer wires were noted. Mild TR. LA size is a large 4.5 cm. ASSESSMENT AND PLAN: This is a 68-year-old male with history of chronic persistent atrial fibrillation on Coumadin, chronic thrombocytopenia, hyperlipidemia, status post dual-chamber pacemaker. I checked the pacemaker, is functional normally. No evidence of VT at the time that he has the symptoms. He is found to have acute kidney injury. His baseline creatinine is 1.16, but his creatinine is rising to 1.8, could be related to dehydration, could also be related to atrial fibrillation with rapid ventricular response. However, when he got here, his heart rate is back down to normal. Recommend to repeat an echocardiogram, cycle cardiac enzymes and resume his cardiac medication, probably hydrate him, give him hydration and then follow creatinine. Regarding chronic thrombocytopenia, his platelet count was noted to be 93 before. He was seen by an oncologist in [place], and he was told that he is okay to take the Coumadin. He will be back in [place] from July to December. He will follow up with them. CHRISSY SANCHEZ /[id number]
[2019-06-08] MEDS ORDERED: Warfarin 5 MG Tab PO SCH (14:00)
--- NOTE | 2019-06-08 16:15 | ECHO ---
The echocardiogram report can be seen in this patient's EMR (Electronic Medical Record) in the REPORTS section. The echocardiogram has also been scanned into PACS and can be seen there as well. [facility]
== END 2019-06-08 11:19 | disposition home or self-care (01) ==
LOC: MW.ED 10:58 → MW.MS 12:24
PROVIDERS: ADMIT Internal Medicine; ATTEND Internal Medicine
DX: I48.92 Unspecified atrial flutter (principal); N17.9 Acute kidney failure, unspecified; D69.6 Thrombocytopenia, unspecified; R42 Dizziness and giddiness; I10 Essential (primary) hypertension; I48.1 Persistent atrial fibrillation; E78.00 Pure hypercholesterolemia, unspecified; E86.0 Dehydration; E66.9 Obesity, unspecified; Z68.41 Body mass index [BMI] 40.0-44.9, adult; Z95.0 Presence of cardiac pacemaker; Z79.01 Long term (current) use of anticoagulants; Z79.1 Long term (current) use of non-steroidal anti-inflammatories (NSAID); Z79.899 Other long term (current) drug therapy
CPT/HCPCS: 36415; 71045; 80048; 80053; 81003; 83735; 84484; 85025; 85610; 93005; 93306; 93880; 96360; 96361; 99285; A9270; G0378; J7040; 99284

== ENCOUNTER 2020-06-13 12:12 | Emergency (ER) | payer MEDICARE, OTHER ==
[2020-06-13] MEDS ORDERED: Sodium Chloride 0.9% 10 ML Syringe FLUSH PRN (12:18)
[2020-06-13] MEDS ORDERED: Sodium Chloride 0.9% 2.5 ML Syringe FLUSH PRN (12:18)
--- NOTE | 2020-06-13 12:28 | EDM.PDOC ---
ED HPI GENERAL MEDICAL PROBLEM - General Chief Complaint: Neuro Symptoms/Deficits Stated Complaint: STROKE CODE Time Seen by Provider: 06/13/20 12:16 Source of Information: Reports: Patient, Family History Limitations: Reports: No Limitations - History of Present Illness INITIAL COMMENTS - FREE TEXT/NARRATIVE: 69M PMHx HTN, HLD, TIA, Afib/flutter (on warfarin) presents for concern by family member for CVA. Patient is very poor historian. States he feels fine. Says his daughter wants him checked for COVID. No other complaints by patient. 1245: provides additional history. Patient had "a spell" a few days ago where he turned white, became diaphoretic lasting several minutes. he has had a mostly non-productive cough. He has had persistent N/V, unable to keep anything down. He has also had numerous episodes of non-bloody emesis. He has seemed more confused than normal. - Related Data Allergies Allergy/AdvReac Type Severity Reaction Status Date / Time No Known Allergies Allergy Verified 11/15/19 10:52 [facility] Home Meds: Home Meds Warfarin [Coumadin] 5 mg PO SUMOWEFR 12/19/15 [History] atorvaSTATin [Lipitor] 40 mg PO DAILY 12/19/15 [History] Diltiazem [Cardizem CD] 180 mg PO DAILY #14 cap.cd 12/21/15 [Rx] Warfarin [Coumadin] 7.5 mg PO TUTHSA 12/21/15 [History] Celecoxib [CeleBREX] 100 mg PO DAILY 06/07/19 [History] Pantoprazole [ProTONIX] 40 mg PO DAILY 06/07/19 [History] Past Medical History HEENT History: Reports: Cataract, Impaired Vision Cardiovascular History: Reports: Afib, Arrhythmia, High Cholesterol, Hypertension, Pacemaker Respiratory History: Reports: None. Denies: COPD Gastrointestinal History: Reports: Diverticulosis, GERD, Other (See Below) Other Gastrointestinal History: "burned portions in esophagus" Genitourinary History: Reports: None Musculoskeletal History: Reports: None Neurological History: Reports: Other (See Below). Denies: CVA, TIA Other Neuro History: meningitis Psychiatric History: Reports: None Endocrine/Metabolic History: Reports: Obesity/BMI 30+. Denies: Diabetes, Type II Hematologic History: Reports: Idiopathic Thrombocytopenia Immunologic History: Reports: None Oncologic (Cancer) History: Reports: None Dermatologic History: Reports: None - Infectious Disease History Infectious Disease History: Reports: Measles - Past Surgical History Head Surgeries/Procedures: Reports: None HEENT Surgical History: Reports: None, Cataract Surgery Cardiovascular Surgical History: Reports: Pacer Respiratory Surgical History: Reports: None GI Surgical History: Reports: None Male Surgical History: Reports: None Endocrine Surgical History: Reports: None Neurological Surgical History: Reports: None Musculoskeletal Surgical History: Reports: Knee Replacement Oncologic Surgical History: Reports: None Dermatological Surgical History: Reports: None Social & Family History - Family History Family Medical History: Noncontributory - Caffeine Use Caffeine Use: Reports: Soda - Living Situation & Occupation Living situation: Reports: Occupation: Retired ED ROS GENERAL - Review of Systems Review Of Systems: Comprehensive ROS is negative, except as noted in HPI. ED EXAM, NEURO - Physical Exam Exam: See Below Exam Limited By: No Limitations General Appearance: Alert, WD/WN, No Apparent Distress Eye Exam: Bilateral Eye: EOMI, PERRL Ears: Normal External Exam Nose: Normal Inspection Throat/Mouth: Normal Inspection, Normal Voice, No Airway Compromise Head Exam: Atraumatic, Normocephalic Neck: Normal Inspection Respiratory/Chest: No Respiratory Distress, Lungs Clear, Normal Breath Sounds, No Accessory Muscle Use Cardiovascular: Normal Peripheral Pulses, Regular Rate, Rhythm GI/Abdominal: Soft, Non-Tender, No Distention Neurological: Alert, Normal Mood/Affect, CN II-XII Intact, Normal Gait, Normal Reflexes, No Motor/Sensory Deficits, Oriented x 3, Other (baseline shakiness but normal [id number] b/l ) Extremities: Normal Inspection Psychiatric: Normal Affect, Normal Mood Skin Exam: Warm, Dry, Intact, Normal Color EKG INTERPRETATION EKG Date: 06/13/20 Time: 12:56 Rhythm: A-Flutter Rate (Beats/Min): 103 [place]: Normal P-Wave: Absent QRS: Normal ST-T: Normal QT: Normal EKG Interpretation Comments: Aflutter 2/ varied AV block, ventricular rate 103, atrial rate 306, no acute ischemic changes Course - Vital Signs Last Recorded V/S: Last Vital Signs Temp Pulse 104 H 06/13/20 13:55 Resp 21 H 06/13/20 13:55 BP 154/98 H 06/13/20 13:55 Pulse Ox 90 L 06/13/20 13:55 - Orders/Labs/Meds Orders: Active Orders 24 hr Category Date Time Status Cardiac Monitoring [RC] . DIRECTED Care 06/13/20 12:18 Active EKG Documentation Completion [RC] STAT Care 06/13/20 12:18 Active Pulse Oximetry [RC] ASDIRECTED Care 06/13/20 12:18 Active UA W/ABRAHAM RFLX IF INDICATED [URIN] Stat Lab 06/13/20 12:19 Ordered Sodium Chloride 0.9% [Saline Flush] Med 06/13/20 12:18 Active 10 ml FLUSH ASDIRECTED PRN Sodium Chloride 0.9% [Saline Flush] Med 06/13/20 12:18 Active 2.5 ml FLUSH ASDIRECTED PRN Saline Lock Insert [OM.PC] Stat Oth 06/13/20 12:18 Ordered Medication Orders Sodium Chloride (Saline Flush) 10 ml FLUSH ASDIRECTED PRN PRN Reason: Keep Vein Open Last Admin: 06/13/20 12:36 Dose: 10 ml Documented by: JENNIFER Sodium Chloride (Saline Flush) 2.5 ml FLUSH ASDIRECTED PRN PRN Reason: Keep Vein Open Last Admin: 06/13/20 12:36 Dose: 2.5 ml Documented by: JENNIFER Labs: Laboratory Tests 06/13/20 06/13/20 06/13/20 Range/Units 12:16 12:16 12:16 WBC 13.78 H (4.0-11.0) K/uL RBC 3.91 L (4.50-5.90) M/uL Hgb 12.6 L (13.0-17.0) g/dL Hct 38.2 (38.0-50.0) % MCV 97.7 (80.0-98.0) fL MCH 32.2 H (27.0-32.0) pg MCHC 33.0 (31.0-37.0) g/dL RDW Std Deviation 60.2 (28.0-62.0) fl RDW Coeff of Queenie 17 H (11.0-15.0) % Plt Count 28 L (150-400) K/uL MPV (7.40-12.00) fL Add Manual Diff YES Neutrophils % (Manual) 14 L (48.0-80.0) % Band Neutrophils % 11 % Lymphocytes % (Manual) 12 L (16.0-40.0) % Monocytes % (Manual) 62 H (0.0-15.0) % Metamyelocytes % 1 % Nucleated RBC % 0.0 /100WBC Absolute Seg Neuts 1.9 (1.4-5.7) Band Neutrophils # 1.5 Lymphocytes # (Manual) 1.7 (0.6-2.4) Monocytes # (Manual) 8.5 H (0.0-0.8) Absolute Metamyelocyte 0.1 Nucleated RBCs # 0 K/uL Reactive Lymphocytes FEW Platelet Estimate DECREASED Polychromasia 1+ SLIGHT INR APTT (18.6-31.3) SEC Lactate 1.9 (0.20-2.00) mmol/L Sodium 132 L (136-148) mmol/L Potassium 3.4 L (3.5-5.1) mmol/L Chloride 95 L (98-107) mmol/L Carbon Dioxide 25.2 (21.0-32.0) mmol/L BUN 16 (7.0-18.0) mg/dL Creatinine 1.5 H (0.8-1.3) mg/dL Est Cr Clr Drug Dosing TNP Estimated GFR (MDRD) 46.1 ml/min Glucose 136 H (74-106) mg/dL Calcium 8.2 L (8.5-10.1) mg/dL Magnesium 2.2 (1.8-2.4) mg/dL Total Bilirubin 1.7 H (0.2-1.0) mg/dL AST 46 H (15-37) IU/L ALT 26 (14-63) IU/L Alkaline Phosphatase 54 (46-116) U/L Troponin I < 0.050 (0.000-0.056) ng/mL B-Natriuretic Peptide (<100) PG/ML Total Protein 7.8 (6.4-8.2) g/dL Albumin 4.3 (3.4-5.0) g/dL Globulin 3.5 (2.6-4.0) g/dL Albumin/Globulin Ratio 1.2 (0.9-1.6) SARS-CoV-2 RNA (SARAH) (NEGATIVE) 06/13/20 06/13/20 06/13/20 Range/Units 12:16 12:16 12:55 WBC (4.0-11.0) K/uL RBC (4.50-5.90) M/uL Hgb (13.0-17.0) g/dL Hct (38.0-50.0) % MCV (80.0-98.0) fL MCH (27.0-32.0) pg MCHC (31.0-37.0) g/dL RDW Std Deviation (28.0-62.0) fl RDW Coeff of Queenie (11.0-15.0) % Plt Count (150-400) K/uL MPV (7.40-12.00) fL Add Manual Diff Neutrophils % (Manual) (48.0-80.0) % Band Neutrophils % % Lymphocytes % (Manual) (16.0-40.0) % Monocytes % (Manual) (0.0-15.0) % Metamyelocytes % % Nucleated RBC % /100WBC Absolute Seg Neuts (1.4-5.7) Band Neutrophils # Lymphocytes # (Manual) (0.6-2.4) Monocytes # (Manual) (0.0-0.8) Absolute Metamyelocyte Nucleated RBCs # K/uL Reactive Lymphocytes Platelet Estimate Polychromasia INR 1.15 APTT 29.6 (18.6-31.3) SEC Lactate (0.20-2.00) mmol/L Sodium (136-148) mmol/L Potassium (3.5-5.1) mmol/L Chloride (98-107) mmol/L Carbon Dioxide (21.0-32.0) mmol/L BUN (7.0-18.0) mg/dL Creatinine (0.8-1.3) mg/dL Est Cr Clr Drug Dosing Estimated GFR (MDRD) ml/min Glucose (74-106) mg/dL Calcium (8.5-10.1) mg/dL Magnesium (1.8-2.4) mg/dL Total Bilirubin (0.2-1.0) mg/dL AST (15-37) IU/L ALT (14-63) IU/L Alkaline Phosphatase (46-116) U/L Troponin I (0.000-0.056) ng/mL B-Natriuretic Peptide 18 (<100) PG/ML Total Protein (6.4-8.2) g/dL Albumin (3.4-5.0) g/dL Globulin (2.6-4.0) g/dL Albumin/Globulin Ratio (0.9-1.6) SARS-CoV-2 RNA (SARAH) POSITIVE H (NEGATIVE) Meds: Medications Generic Name Dose Route Start Last Admin Trade Name Freq PRN Reason Stop Dose Admin Sodium Chloride 10 ml 06/13/20 12:18 06/13/20 12:36 Saline Flush FLUSH 10 ml ASDIRECTED PRN Administration Keep Vein Open Sodium Chloride 2.5 ml 06/13/20 12:18 06/13/20 12:36 Saline Flush FLUSH 2.5 ml ASDIRECTED PRN Administration Keep Vein Open Discontinued Medications Generic Name Dose Route Start Last Admin Trade Name Freq PRN Reason Stop Dose Admin Sodium Chloride 1,000 mls @ 999 mls/hr 06/13/20 12:44 Normal Saline IV 06/13/20 13:44 .BOLUS ONE Iopamidol 100 ml 06/13/20 12:46 06/13/20 12:47 Isovue Multipack-370 (76%) IVPUSH 06/13/20 12:47 100 ml ONETIME STA Administration - Re-Assessments/Exams Free Text/Narrative Re-Assessment/Exam: 06/13/20 12:20 NIHSS = 0; patient's symptoms and physical exam are not consistent with CVA. However will get CT head/CTA head/neck considering patient triaged as CVA note. Will get additional history from and get broad labs 06/13/20 12:47 Additional history by is helpful; will add CXR, will f/u broad labs, will get COVID-19 swab. 06/13/20 13:56 Patient's CXR unremarkable. Patient's labs remarkable for mild hypokalemia, mild elevated Cr to 1.5, leukocytosis to 13. O2 sats are normal (dipped to low 90s when laying flat, but consistently mid-high 90s at bedside). Will d/c with instructions for quarantine, PO fluids, tylenol/motrin for symptomatic relief. WIll give short course Zofran for symptomatic relief. Departure - Departure Time of Disposition: 13:58 Disposition: Home, Self-Care 01 Condition: Good Clinical Impression: COVID-19 - Discharge Information Instructions: COVID-19 Frequently Asked Questions, COVID-19: How to Protect Yourself and Others - [facility] Referrals: Newton Hartman MD [Primary Care Provider] - Forms: ED Department Discharge Additional Instructions: The following information is given to patients seen in the emergency department who are being discharged to home. This information is to outline your options for follow-up care. We provide all patients seen in our emergency department with a follow-up referral. The need for follow-up, as well as the timing and circumstances, are variable depending upon the specifics of your emergency department visit. If you don't have a primary care physician on staff, we will provide you with a referral. We always advise you to contact your personal physician following an emergency department visit to inform them of the circumstance of the visit and for follow-up with them and/or the need for any referrals to a consulting specialist. The emergency department will also refer you to a specialist when appropriate. This referral assures that you have the opportunity for follow-up care with a specialist. All of these measure are taken in an effort to provide you with optimal care, which includes your follow-up. Under all circumstances we always encourage you to contact your private physician who remains a resource for coordinating your care. When calling for follow-up care, please make the office aware that this follow-up is from your recent emergency room visit. If for any reason you are refused follow-up, please contact the [facility] Emergency Department at and asked to speak to the emergency department charge nurse. Please follow up with your primary care physician. If you do not have a primary care physician, see below: [facility] [address] [place] [id number] [facility] [address] [place] [id number] Sepsis Event Note (ED) - Focused Exam Vital Signs: Vital Signs Pulse Resp BP Pulse Ox 06/13/20 13:55 104 H 21 H 154/98 H 90 L 06/13/20 13:34 106 H 24 H 156/104 H 94 L 06/13/20 12:47 102 H 24 H 155/86 H 98 06/13/20 12:20 103 H 16 147/87 H 98 06/13/20 12:12 107 H 19 158/102 H 96 - My Orders Last 24 Hours: My Active Orders 06/13/20 12:18 Cardiac Monitoring [RC] . DIRECTED EKG Documentation Completion [RC] STAT Pulse Oximetry [RC] ASDIRECTED Sodium Chloride 0.9% [Saline Flush] 10 ml FLUSH ASDIRECTED PRN Sodium Chloride 0.9% [Saline Flush] 2.5 ml FLUSH ASDIRECTED PRN Saline Lock Insert [OM.PC] Stat 06/13/20 12:19 UA W/ABRAHAM RFLX IF INDICATED [URIN] Stat - Assessment/Plan Last 24 Hours: My Active Orders 06/13/20 12:18 Cardiac Monitoring [RC] . DIRECTED EKG Documentation Completion [RC] STAT Pulse Oximetry [RC] ASDIRECTED Sodium Chloride 0.9% [Saline Flush] 10 ml FLUSH ASDIRECTED PRN Sodium Chloride 0.9% [Saline Flush] 2.5 ml FLUSH ASDIRECTED PRN Saline Lock Insert [OM.PC] Stat 06/13/20 12:19 UA W/ABRAHAM RFLX IF INDICATED [URIN] Stat
--- NOTE | 2020-06-13 12:43 | CT ---
Head CT Technique: Multiple axial sections through the brain were obtained. Intravenous contrast was not utilized. Comparison: No prior study is available. Findings: Ventricles along with basal cisterns and sulci over the convexities are mildly prominent. Prominent areas of diminished density are noted within the periventricular and subcortical white matter compatible with small vessel ischemic demyelination change. Old lacunar infarcts are noted within the basal ganglia. No evidence of intracranial hemorrhage. No midline shift or mass-effect. Bone window settings were reviewed. Visualized mastoid sinuses are clear. Retention cyst noted within the left inferior maxillary sinus measuring 1.1 cm. Mild mucosal thickening seen within the ethmoid sinuses. Mastoid sinuses show nothing acute. No acute calvarial abnormality is appreciated. Impression: 1. Senescent change as described above. 2. Sinus findings which are most likely chronic. 3. No acute intracranial abnormality is appreciated. Note: If acute stroke is still clinically considered, consider MRI with diffusion. Diagnostic code #2 This report was dictated in MDT
[2020-06-13] MEDS ORDERED: Sodium Chloride 0.9% 1,000 ML IV ONE (12:44)
[2020-06-13] MEDS ORDERED: Iopamidol 755 MG/ML 500 ML Multipack Bottle IVPUSH STA (12:46)
--- NOTE | 2020-06-13 13:01 | CT ---
CT angiogram of brain Technique: Multiple axial sections through the brain were obtained. Intravenous contrast was utilized. Study performed as a CT angiogram protocol. Multiple MIP images were obtained. Findings: Both vertebral arteries are opacified. Basilar artery is opacified. Posterior cerebral arteries mostly arise off the basilar artery. Posterior cerebral arteries are opacified. Carotid siphons are opacified. Opacification is seen into the middle cerebral arteries and anterior cerebral arteries. Questionable small area of stenosis within the proximal right posterior cerebral artery. No other areas of narrowing or occlusion are seen. No discrete aneurysm is seen. Additional images were obtained of the neck. Intravenous contrast was utilized. Findings: Both common carotid arteries are patent. There is slight irregularity noted at the origin of both internal carotid arteries compatible with mild amount of plaque. No hemodynamic significant stenosis is seen. Other portions of the internal carotid arteries are patent. Proximal external carotid arteries are patent. Vertebral arteries appear to be patent. Impression: 1. Possible mild area of stenosis at the origin of the right posterior cerebral artery. 2. Other portions of the CT angiogram of the brain appear within normal limits. 3. MIP images of the neck vessels shows mild atherosclerotic irregularity within the proximal internal carotid arteries without hemodynamic significant stenosis. No additional abnormality is seen. Diagnostic code #3 This report was dictated in MDT
--- NOTE | 2020-06-13 13:09 | CT ---
Multiple axial sections through the neck were obtained. Intravenous contrast was utilized. Results of this study were dictated with CT angiogram of the brain.
[2020-06-13 13:15] LABS: BLOOD UREA NITROGEN,BUN 16 mg/dL (7.0-18.0); CARBON DIOXIDE,CO2 25.2 mmol/L (21.0-32.0); CHLORIDE,CL 95 mmol/L (98-107); GLUCOSE RANDOM 136 mg/dL (74-106); POTASSIUM,K 3.4 mmol/L (3.5-5.1); SODIUM,NA 132 mmol/L (136-148)
--- NOTE | 2020-06-13 13:37 | CR ---
Chest: AP view of the chest was seen. Comparison: Prior chest x-ray of 11/16/19. Heart is enlarged. Bichamber pacemaker is noted. Apical positioning is noted. Questionable mild pulmonary vascular congestion. Lungs otherwise are grossly clear. Impression: 1. Possible mild CHF. 2. Study less than optimal due to apical positioning of the chest x-ray. Diagnostic code #3 This report was dictated in MDT
[2020-06-13 15:07] VITALS: BP 152/96; PULSE 107
== END 2020-06-13 15:00 | disposition home or self-care (01) ==
LOC: MW.ED 12:12
DX: U07.1 COVID-19 (principal); I10 Essential (primary) hypertension; I48.91 Unspecified atrial fibrillation; E78.00 Pure hypercholesterolemia, unspecified; E66.9 Obesity, unspecified; K21.9 Gastro-esophageal reflux disease without esophagitis; Z79.899 Other long term (current) drug therapy
CPT/HCPCS: 36415; 70450; 70450-26; 70496; 70496-26; 70498; 70498-26; 71045; 71045-26; 80053; 83605; 83735; 83880; 84484; 85025; 85610; 85730; 96360; 99284-25; J7030; Q9967; U0002

== ENCOUNTER 2020-06-17 07:14 | Emergency (ER) | payer MEDICARE, OTHER ==
[2020-06-17] MEDS ORDERED: Dexamethasone 10 MG/ML SDV IVPUSH ONE (07:18)
[2020-06-17] MEDS ORDERED: Sodium Chloride 0.9% 2.5 ML Syringe FLUSH PRN (07:18)
[2020-06-17] MEDS ORDERED: Sodium Chloride 0.9% 10 ML Syringe FLUSH PRN (07:18)
--- NOTE | 2020-06-17 07:20 | EDM.PDOC ---
ED HPI GENERAL MEDICAL PROBLEM - General Stated Complaint: COVID Time Seen by Provider: 06/17/20 07:18 Source of Information: Reports: Patient, EMS History Limitations: Reports: No Limitations - History of Present Illness INITIAL COMMENTS - FREE TEXT/NARRATIVE: 69M PMHx HTN, Afib on warfarin, PPM device, TIA, recently diagnosed COVID-19 4 days ago presents for worsening SOB. Patient is poor historian. Notes worsening SOB and cough. No CP. No antipyretics ASBESTOS SHINGLE ROOFER. Feels weak. Repeat history from states that patient has been very weak overl ast several days, body aches, difficulty moving from couch, coughing. Has been short of breath but worsened last night and this morning prompting EMS call. 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 - Related Data Allergies Allergy/AdvReac Type Severity Reaction Status Date / Time No Known Allergies Allergy Verified 06/17/20 08:18 Home Meds: Home Meds Warfarin [Coumadin] 5 mg PO SUMOWEFR 12/19/15 [History] atorvaSTATin [Lipitor] 40 mg PO DAILY 12/19/15 [History] Diltiazem [Cardizem CD] 180 mg PO DAILY #14 cap.cd 12/21/15 [Rx] Warfarin [Coumadin] 7.5 mg PO TUTHSA 12/21/15 [History] Celecoxib [CeleBREX] 100 mg PO DAILY 06/07/19 [History] Pantoprazole [ProTONIX] 40 mg PO DAILY 06/07/19 [History] Past Medical History HEENT History: Reports: Cataract, Impaired Vision Cardiovascular History: Reports: Afib, Arrhythmia, High Cholesterol, Hypertension, Pacemaker Respiratory History: Reports: None. Denies: COPD Gastrointestinal History: Reports: Diverticulosis, GERD, Other (See Below) Other Gastrointestinal History: "burned portions in esophagus" Genitourinary History: Reports: None Musculoskeletal History: Reports: None Neurological History: Reports: Other (See Below). Denies: CVA, TIA Other Neuro History: meningitis Psychiatric History: Reports: None Endocrine/Metabolic History: Reports: Obesity/BMI 30+. Denies: Diabetes, Type II Hematologic History: Reports: Idiopathic Thrombocytopenia Immunologic History: Reports: None Oncologic (Cancer) History: Reports: None Dermatologic History: Reports: None - Infectious Disease History Infectious Disease History: Reports: Measles - Past Surgical History Head Surgeries/Procedures: Reports: None HEENT Surgical History: Reports: None, Cataract Surgery Cardiovascular Surgical History: Reports: Pacer Respiratory Surgical History: Reports: None GI Surgical History: Reports: None Male Surgical History: Reports: None Endocrine Surgical History: Reports: None Neurological Surgical History: Reports: None Musculoskeletal Surgical History: Reports: Knee Replacement Oncologic Surgical History: Reports: None Dermatological Surgical History: Reports: None Social & Family History - Family History Family Medical History: Noncontributory - Caffeine Use Caffeine Use: Reports: Soda - Living Situation & Occupation Living situation: Reports: Occupation: Retired ED ROS GENERAL - Review of Systems Review Of Systems: Comprehensive ROS is negative, except as noted in HPI. ED EXAM, GENERAL - Physical Exam Exam: See Below Exam Limited By: No Limitations General Appearance: Alert, WD/WN, No Apparent Distress Ears: Normal External Exam Nose: Normal Inspection Throat/Mouth: Normal Inspection, Normal Voice, No Airway Compromise Head: Atraumatic, Normocephalic Neck: Normal Inspection, Supple Respiratory/Chest: No Respiratory Distress, Lungs Clear, Normal Breath Sounds, No Accessory Muscle Use Cardiovascular: Normal Peripheral Pulses, Regular Rate, Rhythm GI/Abdominal: Soft, Non-Tender Extremities: Normal Inspection Neurological: Alert Psychiatric: Normal Affect, Normal Mood Skin Exam: Warm, Dry, Intact, Normal Color EKG INTERPRETATION EKG Date: 06/17/20 Time: 07:37 Rate (Beats/Min): 87 [place]: Normal P-Wave: Present QRS: Normal ST-T: Normal QT: Prolonged Course - Vital Signs Last Recorded V/S: Last Vital Signs Temp 97.6 F 06/17/20 07:19 Pulse 95 06/17/20 08:13 Resp 17 06/17/20 07:19 BP 122/72 06/17/20 08:13 Pulse Ox 86 L 06/17/20 08:13 - Orders/Labs/Meds Orders: Active Orders 24 hr Category Date Time Status Cardiac Monitoring [RC] . DIRECTED Care 06/17/20 07:18 Active EKG Documentation Completion [RC] STAT Care 06/17/20 07:18 Active Pulse Oximetry [RC] ASDIRECTED Care 06/17/20 07:18 Active LACTIC ACID,WHOLE BLOOD [BG] Routine Lab 06/17/20 11:34 Ordered Sodium Chloride 0.9% [Normal Saline] 1,000 ml Med 06/17/20 09:00 Active IV ASDIRECTED Sodium Chloride 0.9% [Saline Flush] Med 06/17/20 07:18 Active 10 ml FLUSH ASDIRECTED PRN Sodium Chloride 0.9% [Saline Flush] Med 06/17/20 07:18 Active 2.5 ml FLUSH ASDIRECTED PRN Saline Lock Insert [OM.PC] Stat Oth 06/17/20 07:18 Ordered Medication Orders Sodium Chloride (Normal Saline) 1,000 mls @ 150 mls/hr IV ASDIRECTED OPAL Last Admin: 06/17/20 09:04 Dose: 150 mls/hr Documented by: CARLOS Sodium Chloride (Saline Flush) 10 ml FLUSH ASDIRECTED PRN PRN Reason: Keep Vein Open Last Admin: 06/17/20 07:28 Dose: 10 ml Documented by: DEBO Sodium Chloride (Saline Flush) 2.5 ml FLUSH ASDIRECTED PRN PRN Reason: Keep Vein Open Last Admin: 06/17/20 07:28 Dose: 2.5 ml Documented by: DEBO Labs: Laboratory Tests 06/17/20 06/17/20 06/17/20 Range/Units 07:25 07:25 07:25 WBC 7.27 (4.0-11.0) K/uL RBC 3.61 L (4.50-5.90) M/uL Hgb 11.3 L (13.0-17.0) g/dL Hct 34.6 L (38.0-50.0) % MCV 95.8 (80.0-98.0) fL MCH 31.3 (27.0-32.0) pg MCHC 32.7 (31.0-37.0) g/dL RDW Std Deviation 59.3 (28.0-62.0) fl RDW Coeff of Queenie 17 H (11.0-15.0) % Plt Count 21 L (150-400) K/uL Add Manual Diff YES Neutrophils % (Manual) 40 L (48.0-80.0) % Band Neutrophils % 6 % Lymphocytes % (Manual) 9 L (16.0-40.0) % Monocytes % (Manual) 44 H (0.0-15.0) % Metamyelocytes % 1 % Nucleated RBC % 0.0 /100WBC Absolute Seg Neuts 2.9 (1.4-5.7) Band Neutrophils # 0.4 Lymphocytes # (Manual) 0.7 (0.6-2.4) Monocytes # (Manual) 3.2 H (0.0-0.8) Absolute Metamyelocyte 0.1 Nucleated RBCs # 0 K/uL INR 1.19 APTT 27.8 (18.6-31.3) SEC D-Dimer, Quantitative 23.87 H (0.0-0.50) mg/L FEU ABG pH (7.35-7.45) ABG pCO2 (35-45) mmHG ABG pO2 (75-100) mmHG ABG HCO3 (22-26) mEq/L ABG Total CO2 ABG Base Excess (-2.0-2.0) Lactate 2.2 H* (0.20-2.00) mmol/L Sodium (136-148) mmol/L Potassium (3.5-5.1) mmol/L Chloride (98-107) mmol/L Carbon Dioxide (21.0-32.0) mmol/L BUN (7.0-18.0) mg/dL Creatinine (0.8-1.3) mg/dL Est Cr Clr Drug Dosing Estimated GFR (MDRD) ml/min Glucose (74-106) mg/dL Calcium (8.5-10.1) mg/dL Magnesium (1.8-2.4) mg/dL Ferritin (26-388) ng/mL Total Bilirubin (0.2-1.0) mg/dL AST (15-37) IU/L ALT (14-63) IU/L Alkaline Phosphatase (46-116) U/L Lactate Dehydrogenase (81-234) U/L Troponin I (0.000-0.056) ng/mL C-Reactive Protein (0.00-0.90) mg/dL B-Natriuretic Peptide (<100) PG/ML Total Protein (6.4-8.2) g/dL Albumin (3.4-5.0) g/dL Globulin (2.6-4.0) g/dL Albumin/Globulin Ratio (0.9-1.6) 06/17/20 06/17/20 06/17/20 Range/Units 07:25 07:25 07:25 WBC (4.0-11.0) K/uL RBC (4.50-5.90) M/uL Hgb (13.0-17.0) g/dL Hct (38.0-50.0) % MCV (80.0-98.0) fL MCH (27.0-32.0) pg MCHC (31.0-37.0) g/dL RDW Std Deviation (28.0-62.0) fl RDW Coeff of Queenie (11.0-15.0) % Plt Count (150-400) K/uL Add Manual Diff Neutrophils % (Manual) (48.0-80.0) % Band Neutrophils % % Lymphocytes % (Manual) (16.0-40.0) % Monocytes % (Manual) (0.0-15.0) % Metamyelocytes % % Nucleated RBC % /100WBC Absolute Seg Neuts (1.4-5.7) Band Neutrophils # Lymphocytes # (Manual) (0.6-2.4) Monocytes # (Manual) (0.0-0.8) Absolute Metamyelocyte Nucleated RBCs # K/uL INR APTT (18.6-31.3) SEC D-Dimer, Quantitative (0.0-0.50) mg/L FEU ABG pH (7.35-7.45) ABG pCO2 (35-45) mmHG ABG pO2 (75-100) mmHG ABG HCO3 (22-26) mEq/L ABG Total CO2 ABG Base Excess (-2.0-2.0) Lactate (0.20-2.00) mmol/L Sodium 131 L (136-148) mmol/L Potassium 2.9 L (3.5-5.1) mmol/L Chloride 94 L (98-107) mmol/L Carbon Dioxide 27.2 (21.0-32.0) mmol/L BUN 24 H (7.0-18.0) mg/dL Creatinine 1.8 H (0.8-1.3) mg/dL Est Cr Clr Drug Dosing TNP Estimated GFR (MDRD) 37.4 ml/min Glucose 136 H (74-106) mg/dL Calcium 7.7 L (8.5-10.1) mg/dL Magnesium 2.4 (1.8-2.4) mg/dL Ferritin 2232 H (26-388) ng/mL Total Bilirubin 1.6 H (0.2-1.0) mg/dL AST 155 H (15-37) IU/L ALT 54 (14-63) IU/L Alkaline Phosphatase 45 L (46-116) U/L Lactate Dehydrogenase 1471 H (81-234) U/L Troponin I 0.141 H* (0.000-0.056) ng/mL C-Reactive Protein 15.00 H (0.00-0.90) mg/dL B-Natriuretic Peptide 20 (<100) PG/ML Total Protein 6.8 (6.4-8.2) g/dL Albumin 3.5 (3.4-5.0) g/dL Globulin 3.3 (2.6-4.0) g/dL Albumin/Globulin Ratio 1.1 (0.9-1.6) 06/17/20 Range/Units 08:30 WBC (4.0-11.0) K/uL RBC (4.50-5.90) M/uL Hgb (13.0-17.0) g/dL Hct (38.0-50.0) % MCV (80.0-98.0) fL MCH (27.0-32.0) pg MCHC (31.0-37.0) g/dL RDW Std Deviation (28.0-62.0) fl RDW Coeff of Queenie (11.0-15.0) % Plt Count (150-400) K/uL Add Manual Diff Neutrophils % (Manual) (48.0-80.0) % Band Neutrophils % % Lymphocytes % (Manual) (16.0-40.0) % Monocytes % (Manual) (0.0-15.0) % Metamyelocytes % % Nucleated RBC % /100WBC Absolute Seg Neuts (1.4-5.7) Band Neutrophils # Lymphocytes # (Manual) (0.6-2.4) Monocytes # (Manual) (0.0-0.8) Absolute Metamyelocyte Nucleated RBCs # K/uL INR APTT (18.6-31.3) SEC D-Dimer, Quantitative (0.0-0.50) mg/L FEU ABG pH 7.466 H (7.35-7.45) ABG pCO2 39 (35-45) mmHG ABG pO2 29 L* (75-100) mmHG ABG HCO3 28 H (22-26) mEq/L ABG Total CO2 25.6 ABG Base Excess 3.8 H (-2.0-2.0) Lactate (0.20-2.00) mmol/L Sodium (136-148) mmol/L Potassium (3.5-5.1) mmol/L Chloride (98-107) mmol/L Carbon Dioxide (21.0-32.0) mmol/L BUN (7.0-18.0) mg/dL Creatinine (0.8-1.3) mg/dL Est Cr Clr Drug Dosing Estimated GFR (MDRD) ml/min Glucose (74-106) mg/dL Calcium (8.5-10.1) mg/dL Magnesium (1.8-2.4) mg/dL Ferritin (26-388) ng/mL Total Bilirubin (0.2-1.0) mg/dL AST (15-37) IU/L ALT (14-63) IU/L Alkaline Phosphatase (46-116) U/L Lactate Dehydrogenase (81-234) U/L Troponin I (0.000-0.056) ng/mL C-Reactive Protein (0.00-0.90) mg/dL B-Natriuretic Peptide (<100) PG/ML Total Protein (6.4-8.2) g/dL Albumin (3.4-5.0) g/dL Globulin (2.6-4.0) g/dL Albumin/Globulin Ratio (0.9-1.6) Meds: Medications Generic Name Dose Route Start Last Admin Trade Name Freq PRN Reason Stop Dose Admin Sodium Chloride 1,000 mls @ 150 mls/hr 06/17/20 09:00 06/17/20 09:04 Normal Saline IV 150 mls/hr ASDIRECTED OPAL Administration Sodium Chloride 10 ml 06/17/20 07:18 06/17/20 07:28 Saline Flush FLUSH 10 ml ASDIRECTED PRN Administration Keep Vein Open Sodium Chloride 2.5 ml 06/17/20 07:18 06/17/20 07:28 Saline Flush FLUSH 2.5 ml ASDIRECTED PRN Administration Keep Vein Open Discontinued Medications Generic Name Dose Route Start Last Admin Trade Name Freq PRN Reason Stop Dose Admin Aspirin 324 mg 10/03/20 08:48 06/17/20 09:04 Aspirin PO 06/17/20 08:49 324 mg ONETIME ONE Administration Dexamethasone 10 mg 06/17/20 07:18 06/17/20 07:26 Dexamethasone IVPUSH 06/17/20 07:19 10 mg ONETIME ONE Administration Iopamidol 100 ml 06/17/20 09:50 06/17/20 09:50 Isovue-370 (76%) IVPUSH 06/17/20 09:51 100 ml ONETIME ONE Administration - Re-Assessments/Exams Free Text/Narrative Re-Assessment/Exam: 06/17/20 08:55 Will workup for COVID complications and anticipate admission for further workup and management. Patient is satting consistently mid-high 80s on 15-L NRB. As patient is mentating well and not in respiratory distress, will avoid intubation. Decadron was given. Troponin is elevated so aspirin given. 1-L IVFs started at 150cc/hr. Will get CTA in setting of elevated D-dimer to r/o PE. Patient will require transfer to a higher level of care. 06/17/20 10:29 Patient's CTA is negative for PE. Does show evidence of COVID pneumonia. Will transfer patient to higher level of care. Patient is actually saturating very well now mid 90s on 15-L NRB w/ good waveform. 06/17/20 11:10 Spoke with ICU doctor in [facility] who would like patient admitted to hospitalist; will wait for their call and transfer patient. 06/17/20 11:44 Dr. Adams hospitalist agrees to admit to her service Departure - Departure Time of Disposition: 11:44 Disposition: DC/Tfer to Acute Hospital 02 Condition: Good Clinical Impression: COVID-19 - Discharge Information Referrals: Newton Hartman MD [Primary Care Provider] - Sepsis Event Note (ED) - Focused Exam Vital Signs: Vital Signs Temp Pulse Resp BP Pulse Ox 06/17/20 08:13 95 122/72 86 L 06/17/20 07:49 117/74 06/17/20 07:34 92 139/74 92 L 06/17/20 07:19 97.6 F 93 17 132/83 88 L - My Orders Last 24 Hours: My Active Orders 06/17/20 07:18 Cardiac Monitoring [RC] . DIRECTED EKG Documentation Completion [RC] STAT Pulse Oximetry [RC] ASDIRECTED Sodium Chloride 0.9% [Saline Flush] 10 ml FLUSH ASDIRECTED PRN Sodium Chloride 0.9% [Saline Flush] 2.5 ml FLUSH ASDIRECTED PRN Saline Lock Insert [OM.PC] Stat 06/17/20 09:00 Sodium Chloride 0.9% [Normal Saline] 1,000 ml IV ASDIRECTED 06/17/20 11:34 LACTIC ACID,WHOLE BLOOD [BG] Routine - Assessment/Plan Last 24 Hours: My Active Orders 06/17/20 07:18 Cardiac Monitoring [RC] . DIRECTED EKG Documentation Completion [RC] STAT Pulse Oximetry [RC] ASDIRECTED Sodium Chloride 0.9% [Saline Flush] 10 ml FLUSH ASDIRECTED PRN Sodium Chloride 0.9% [Saline Flush] 2.5 ml FLUSH ASDIRECTED PRN Saline Lock Insert [OM.PC] Stat 06/17/20 09:00 Sodium Chloride 0.9% [Normal Saline] 1,000 ml IV ASDIRECTED 06/17/20 11:34 LACTIC ACID,WHOLE BLOOD [BG] Routine
[2020-06-17 08:05] LABS: BLOOD UREA NITROGEN,BUN 24 mg/dL (7.0-18.0); CARBON DIOXIDE,CO2 27.2 mmol/L (21.0-32.0); CHLORIDE,CL 94 mmol/L (98-107); GLUCOSE RANDOM 136 mg/dL (74-106); POTASSIUM,K 2.9 mmol/L (3.5-5.1); SODIUM,NA 131 mmol/L (136-148)
--- NOTE | 2020-06-17 08:09 | CR ---
Indication: Patient with dyspnea. History of COVID. Technique: AP portable view of the chest. Comparison: June 13, 2020. Findings: The heart is enlarged. A left-sided pacemaker is identified. Increasing peripheral opacities are identified. A small left pleural effusion is seen. No pneumothorax is identified. Impression: Increasing peripheral opacities, particularly in within the mid and lower lung zones bilaterally Dictated by Ladonna Lanza MD @ Jun 17 2020 8:04AM Signed by Dr. Ladonna Lanza @ Jun 17 2020 8:09AM
[2020-06-17] MEDS ORDERED: Aspirin 81 MG Tab.Chew PO ONE (08:48)
[2020-06-17] MEDS ORDERED: Sodium Chloride 0.9% 1,000 ML IV SCH (09:00)
[2020-06-17] MEDS ORDERED: Iopamidol 755 Mg/ML 100 ML Bottle IVPUSH ONE (09:50)
--- NOTE | 2020-06-17 10:15 | CT ---
INDICATION: COVID positive, dyspnea, hypoxia. TECHNIQUE: CT chest pulmonary angiogram acquired following the administration of 100 mL Isovue 370 IV contrast. COMPARISON: Chest radiograph 06/17/2020 FINDINGS: Study is mildly limited by respiratory motion artifact. Cardiovascular structures: No pulmonary embolism, noting mildly limited evaluation of subsegmental pulmonary arteries due to motion artifact. Normal heart size. Coronary artery calcifications. No pericardial effusion. Pacemaker leads terminating in the right atrium and right ventricle. Thoracic aorta and main pulmonary artery are normal in caliber. Mediastinum and aldair: Multiple prominent mediastinal lymph nodes, the largest including right paratracheal lymph nodes measuring up to 1.3 cm. Enlarged right hilar lymph node measuring 1.7 cm. Lungs: Bilateral, predominantly peripheral, confluent areas of ground-glass opacities and dense consolidation. No pleural effusions. No pneumothorax. Chest wall and axilla: No mass or adenopathy. Bones: No acute abnormality. No suspicious bone lesion. Upper abdomen: Enlarged spleen, measuring 15 cm. Small hiatal hernia. IMPRESSION: 1. No pulmonary embolism, noting limited evaluation of subsegmental pulmonary arteries due to motion artifact. 2. Bilateral confluent areas of ground-glass opacities and dense consolidations, consistent with known history of COVID pneumonia. 3. Mild mediastinal and hilar lymphadenopathy, likely reactive. 4. Splenomegaly. Please note that all CT scans at this facility use dose modulation, iterative reconstruction, and/or weight-based dosing when appropriate to reduce radiation dose to as low as reasonably achievable. Dictated by Lali Hammonds MD @ Jun 17 2020 10:01AM Signed by Dr. Lali Hammonds @ Jun 17 2020 10:13AM
[2020-06-17 19:17] VITALS: BP 134/85; PULSE 81
== END 2020-06-17 12:10 ==
LOC: MW.ED 07:14
DX: U07.1 COVID-19 (principal); I48.91 Unspecified atrial fibrillation; E78.00 Pure hypercholesterolemia, unspecified; I10 Essential (primary) hypertension; K21.9 Gastro-esophageal reflux disease without esophagitis; E66.9 Obesity, unspecified; Z68.39 Body mass index [BMI] 39.0-39.9, adult; Z79.899 Other long term (current) drug therapy
CPT/HCPCS: 36415; 36600; 71045; 71275; 80053; 82728; 82803; 83605; 83615; 83735; 83880; 84484; 85025; 85379; 85610; 85730; 86140; 93005; 96361; 96374; 99285; A9270; J1100; J7030; Q9967; 93010; 99291